=== PATIENT | male | born 1960 | race Caucasian/White ===

== ENCOUNTER 2017-06-21 08:40 | Emergency (ER) | payer BC, OTHER ==
[~2017-06-21] VITALS: Ht 180.3 cm; Wt 106.6 kg
[~2017-06-21 08:40] MED LIST: ASPI-586 PO; MULT-35 PO; OMEP20TA33 PO; PRAV20TA3 PO
[2017-06-21] MEDS ORDERED: MONT10TA24 (10:37)
[2017-06-21] MEDS ORDERED: DICL75TA2 (10:37)
[2017-06-21] MEDS ORDERED: META800T (10:37)
[2017-06-21] MEDS ORDERED: FLUT1AER (10:37)
[2017-06-21] MEDS ORDERED: METH4TAB PO (11:04)
[2017-06-21] MEDS ORDERED: HYDR-757 PO (11:04)
--- NOTE | 2017-06-21 11:04 | ED Upper Extremity ---
General Chief Complaint: Upper Extremity Stated Complaint: R SHOULDER PAIN RADIATING INTO FINGERS Nursing Triage Note: pt c/o right shoulder pain x 3 weeks. pt was seen at hospital in [place], [place] last week et started on diclofenac et metaxalone and given a steroid injection. denies improvement. pain radiating to hand. Nursing Sepsis Screen: No Definite Risk Source: patient Exam Limitations: no limitations History of Present Illness Time seen by provider: 11:01 Initial Comments To ER with right shoulder pain that radiates up into his neck and down into his fingers. This is been present for one week without any known injury. He works as a local delivery truck driver and was seen at a hospital in [place] last week. Given a prescription for metaxalone and diclofenac without improvement. Does not have a local physician. Onset: last week Severity: moderate Pain/Injury Location: right shoulder, right arm, right hand Method of Injury: unknown Modifying Factors: Worse With Movement Allergies and Home Medications Allergies Coded Allergies: No Known Drug Allergies (Unverified , 04/30/16) Home Medications Diclofenac Sodium 75 Mg Tablet., (Reported) Fluticasone/Vilanterol 1 Each Blst.w.dev, (Reported) Metaxalone 800 Mg Tablet, (Reported) Montelukast Sodium 10 Mg Tablet, (Reported) Omeprazole Magnesium 20 Mg Tablet.dr, 20 MG PO DAILY, (Reported) Pravastatin Sodium 20 Mg Tablet, 20 MG PO DAILY, #30 Prescribed by: JEWEL COKER on 05/01/16 1500 Constitutional: see HPI EENTM: see HPI Respiratory: no symptoms reported Cardiovascular: no symptoms reported Genitourinary: no symptoms reported Musculoskeletal: no symptoms reported Skin: no symptoms reported Past Jioukxo-Nbpmex-Fymooe Hx Patient Social History Type Used: Cigarettes Recent Foreign Travel: No Contact w/Someone Who Travel: No Recent Infectious Disease Expo: No Recent Hopitalizations: No Seasonal Allergies Seasonal Allergies: No Surgeries History of Surgeries: No Respiratory History of Respiratory Disorde: No Currently Using CPAP: No Currently Using BIPAP: No Cardiovascular History of Cardiac Disorders: No Neurological History of Neurological Disord: No Reproductive System Hx Reproductive Disorders: No Sexually Transmitted Disease: No HIV/AIDS: No Genitourinary History of Genitourinary Disor: No Gastrointestinal History of Gastrointestinal Di: Yes Gastrointestinal Disorders: Abdominal Hernia, Gastroesophageal Reflux Musculoskeletal History of Musculoskeletal Dis: No Endocrine History of Endocrine Disorders: No HEENT History of HEENT Disorders: No Cancer History of Cancer: No Did You Recieve Any Treatments: No Psychosocial History of Psychiatric Problem: No Integumentary History of Skin or Integumenta: No Blood Transfusions History of Blood Disorders: No Adverse Reaction to a Blood Tr: No Family Medical History Significant Family History: CAD Over 55 Years Old Family Medial History: Arthritis G8 BROTHER Cardiovascular disease 19 FATHER Cataracts 19 FATHER Colon cancer 19 FATHER Deafness or hearing loss 19 FATHER Diabetes mellitus 19 FATHER Hypercholesterolemia 19 FATHER Hypertension 19 FATHER Myocardial infarction 19 FATHER G8 BROTHER Respiratory disorder G8 BROTHER Physical Exam Vital Signs Vital Sign - Last 12Hours 06/21/17 09:22 Temp 98.0 Pulse 66 Resp 20 B/P (MAP) 109/60 Capillary Refill : Less Than 3 Seconds General Appearance: WD/WN, no apparent distress HEENT: PERRL/EOMI, normal ENT inspection Neck: non-tender, full range of motion Cardiovascular: regular rate, rhythm, no murmur Respiratory: normal breath sounds, no respiratory distress, no accessory muscle use Gastrointestinal: normal bowel sounds, non tender Shoulder: normal inspection, non-tender Elbow/Forearm: normal inspection, non-tender, Right Wrist: Yes normal inspection, Yes non-tender Neurologic/Tendon: normal sensation, normal motor functions, normal tendon functions Neurologic/Psychiatric: alert, normal mood/affect, oriented x 3 Skin: normal color, warm/dry Progress/Results/Core Measures Results/Orders Vital Signs/I&O Vital Sign - Last 12Hours 06/21/17 09:22 Temp 98.0 Pulse 66 Resp 20 B/P (MAP) 109/60 Blood Pressure Mean: 76 Departure Impression Impression: Primary Impression: Cervical radiculopathy Disposition: 01 HOME, SELF-CARE Condition: Stable Departure-Patient Inst. Decision time for Depature: 11:03 Referrals: NO,LOCAL PHYSICIAN (PCP/Family) Primary Care Physician Patient Instructions: Radiculopathy Add. Discharge Instructions: 1. Do not drive for 8 hours after taking one of these pain pills 2. Continue taking your other medications 3. Follow-up with a family physician to discuss further evaluation such as an MRI.. Scripts Methylprednisolone (Medrol) 4 Mg Tab.ds.pk 4 MG PO UD, #1 PKG Prov: PERLA LEWIS APRN 06/21/17 Hydrocodone/Acetaminophen ([place] 5-325 Tablet) 1 Each Tablet 1 EACH PO Q4H Y for PAIN-SEVERE, #14 TAB Prov: PERLA LEWIS APRN 06/21/17 PERLA LEWIS APRN Jun 21, 2017 11:04
[2017-06-21 11:27] VITALS: BP 109/60
== END 2017-06-21 11:27 | disposition home or self-care (01) ==
LOC: EDUNIT# 08:40 → ER 08:42
DX: M54.12 Radiculopathy, cervical region (principal); K21.9 Gastro-esophageal reflux disease without esophagitis; Z87.19 Personal history of other diseases of the digestive system; Z82.49 Family history of ischemic heart disease and other diseases of the circulatory system
CPT/HCPCS: 99282

== ENCOUNTER → 2017-07-16 | Outpatient (CLI) | payer BC ==
[~2017-07-16] MED LIST changes: +DICL75TA2; +FLUT1AER; +HYDR-757 PO; +META800T; +METH4TAB PO; +MONT10TA24
--- NOTE | 2017-07-16 15:14 | Diagnostic Imaging Report ---
PROCEDURE: MRI right joint upper extremity without contrast. TECHNIQUE: Multiplanar, multisequence MR imaging of the right shoulder was performed without contrast. COMPARISON: None available. INDICATION: Right shoulder pain with limited range of motion. FINDINGS: Rotator cuff: There is abnormal thickening of the anterior supraspinatus with heterogeneous intrinsic signal indicative of tendinopathy. A superimposed low-grade partial-thickness focal interstitial tear is present in the anterior supraspinatus. The teres minor and infraspinatus are normal. Subscapularis tendinopathy with low-grade partial-thickness tearing of the deep superior insertional fibers. Glenoid labrum: By non-arthrogram imaging, the glenoid labrum appears intact. No para-labral cyst. Long head of biceps: Long head of biceps is partially subluxed medially due to overlying partial-thickness tearing of the subscapularis. The intracapsular segment remains intact. Bones and cartilage: Humeral head is normal in morphology without fracture or focal osseous lesion. No glenohumeral chondromalacia. Mild hypertrophic degenerative changes of the acromioclavicular joint without significant inferior projecting osteophytes. Soft tissues: No glenohumeral joint effusion. No MRI findings to suggest adhesive capsulitis. No fluid or inflammatory like signal within the subacromial/subdeltoid space to indicate bursitis. IMPRESSION: 1. Supraspinatus and infraspinatus tendinopathy with superimposed low-grade partial-thickness tears. No rotator cuff muscle atrophy. 2. Medial subluxation of the long head of biceps secondary to overlying partial-thickness tearing of the deep fibers of the infraspinatus. Long head of biceps remains intact. Dictated by: Dictated on workstation # [id number]
== END ==
LOC: RAD 13:34
PROVIDERS: ATTEND Nurse Practitioner Family
DX: S43.081A Other subluxation of right shoulder joint, initial encounter (principal); M75.111 Incomplete rotator cuff tear or rupture of right shoulder, not specified as traumatic; M65.811 Other synovitis and tenosynovitis, right shoulder
CPT/HCPCS: 73221

== ENCOUNTER → 2018-10-05 | Outpatient (CLI) | payer BC, OTHER ==
[~2018-10-05] MED LIST changes: +CATHETER FLUSH 10 ML SYR IV PRN; +HYDR-4226 PO; -HYDR-757 PO; +IOHEXOL 350 MG/ML 150 ML (OMNIPAQUE 350) VIAL IV ONE; +NS 100 ML (IVPB) BAG IV ONE; +RECEIVED CONTRAST (Hold Metformin) IV SCH
[2018-10-05 15:42] LABS: BUN/CREATININE RATIO 9; CREATININE SERUM 1.17 MG/DL (0.60-1.30); GFR ESTIMATED > 60
[2018-10-05 16:28] LABS: ABG BASE EXCESS -2.5 MMOL/L (-2.5-2.5); ABG OXYGEN SATURATION 96 % (94-100); ABG PCO2 36 MMHG (35-45); ABG PO2 70 MMHG (79-93); ABG TCO2 22.9 MMOL/L (21.0-31.0)
[2018-10-05 16:32] LABS: ALLENS TEST POSITIVE
[2018-10-05 16:33] LABS: PATIENT TEMP 97.3; VENTILATOR NO
--- NOTE | 2018-10-05 16:35 | Diagnostic Imaging Report ---
INDICATION: Bilateral leg pain. Bilateral lower extremity venous Doppler study was performed in the routine fashion with color flow Doppler and waveform analysis. FINDINGS: The common femoral veins, superficial femoral veins, popliteal veins and visualized portion of the tibial veins show normal compressibility and venous flow patterns. There is normal augmentation. IMPRESSION: No evidence of deep vein thrombosis in the major veins of both legs. Dictated by: Dictated on workstation # [id number]
--- NOTE | 2018-10-05 18:24 | Diagnostic Imaging Report ---
PROCEDURE: CT angiography of the chest with contrast. TECHNIQUE: Multiple contiguous axial images were obtained through the chest after uneventful bolus administration of intravenous contrast. 2D reconstructed CTA MIP acquisitions were also performed. INDICATION: Left-sided chest pain. Lightheaded. History of tobacco use. Shortness of air. COMPARISON: None. FINDINGS: There is no pulmonary artery filling defect to reflect pulmonary embolism. Small amount of gas noted in the main pulmonary artery non dependently, likely owing to IV access. Heart size is relatively normal without evidence for disproportionate right heart strain. No pericardial effusion. Thoracic aorta is unremarkable. A few mildly prominent scattered mediastinal lymph nodes. No pathologically enlarged lymphadenopathy. Mildly prominent right hilar lymph node at 16 x 10 mm. Calcification in the right subcarinal region. Small amount of fluid within the esophagus could be reflective of potential reflux. There is mild to moderately advanced emphysematous change about the lung parenchyma. Mild groundglass opacities are suggested, however there is no focal lobar consolidation. A few small bullae formation. No gurmeet honeycombing. There is suggestion of some central peribronchial thickening, right slightly greater than left. Asymmetric pleural-based nodularity in the superior segment of the left lower lobe posteriorly at 10 x 4 mm. Diffuse hepatic steatosis. No definitive focal lesion. A few shotty upper abdominal lymph nodes. There is 24 x 19 mm lower-density left adrenal gland mass while incompletely characterized favors probable adenoma. The visualized osseous structures demonstrate no acute findings. IMPRESSION: 1. No CTA evidence for pulmonary embolism. 2. Emphysematous change about the lung parenchyma. Small pleural-based indeterminate nodule in the superior segment of the left lower lobe. 3. Mildly prominent right hilar lymphadenopathy with bilateral peribronchial thickening, suggesting likely nonspecific bronchitis, could be chronic in nature. No gurmeet lobar consolidation. 4. Given the overall findings and clinical history, particularly of tobacco use, followup imaging is recommended. If patient is clinically able, potential lung cancer screening protocol could be utilized. Dictated by: Dictated on workstation # [id number]
== END ==
LOC: RAD 15:03
PROVIDERS: ATTEND Nurse Practitioner Family
DX: J43.9 Emphysema, unspecified (principal); R91.1 Solitary pulmonary nodule; J98.4 Other disorders of lung; M79.604 Pain in right leg; M79.605 Pain in left leg; G47.33 Obstructive sleep apnea (adult) (pediatric); J30.9 Allergic rhinitis, unspecified; Z72.0 Tobacco use
CPT/HCPCS: 36415; 36600; 71275; 82565; 82805; 84520; 93970

== ENCOUNTER → 2020-02-24 | Outpatient (CLI) | payer BC ==
[~2020-02-24] MED LIST changes: -CATHETER FLUSH 10 ML SYR IV PRN; -IOHEXOL 350 MG/ML 150 ML (OMNIPAQUE 350) VIAL IV ONE; -MONT10TA24; +MONT10TA26; -NS 100 ML (IVPB) BAG IV ONE; -RECEIVED CONTRAST (Hold Metformin) IV SCH
--- NOTE | 2020-02-24 11:36 | Diagnostic Imaging Report ---
PROCEDURE: CT abdomen and pelvis without contrast. TECHNIQUE: Multiple contiguous axial images were obtained through the abdomen and pelvis without the use of intravenous contrast. Auto Exposure Controls were utilized during the CT exam to meet ALARA standards for radiation dose reduction. INDICATION: Newly diagnosed prostate carcinoma. No prior studies are available for comparison. The lung bases are clear. Liver does demonstrate some generalized low density suggestive of hepatic steatosis. No discrete liver mass is detected. The gallbladder is unremarkable. No biliary duct dilatation is identified. The pancreas and spleen are unremarkable. No adrenal mass on the right is seen. There is a low density mass left adrenal gland measuring 18 mm suggestive of an adenoma. No renal calculi or hydronephrosis is identified. Aorta is calcified but non-aneurysmal. No central retroperitoneal or mesenteric lymphadenopathy is detected. Bowel loops are of normal caliber. No obstruction is seen. There is diverticulosis of the descending and sigmoid colon but no evidence of acute diverticulitis. No definite free fluid or fluid collection is identified. Appendix is unremarkable. No definite iliac or inguinal lymphadenopathy is identified. The bladder is unremarkable. Prostate contains central calcifications. There is an area of soft tissue prominence along the posterior lateral aspect of the prostate on the right side. Periprostatic lymph node cannot be excluded. Area of soft tissue prominence measures approximately 2.5 x 1.7 cm, best seen image 86, series 2. Bony structures are without evidence of an osteoblastic lesion. Note is made of a fat-containing umbilical hernia. IMPRESSION: 1. Hepatic steatosis. 2. Uncomplicated diverticulosis. 3. Fat-containing umbilical hernia. 4. Soft tissue prominence adjacent to the right lateral and slightly posterior aspect of the prostate. This could represent periprostatic sarath mass. No other areas of lymphadenopathy are identified. No other suspicious abnormality is seen. Dictated by: Dictated on workstation # [id number]
--- NOTE | 2020-02-24 14:40 | Diagnostic Imaging Report ---
INDICATION: Prostate carcinoma. TECHNIQUE: Patient was administered 25.5 mCi technetium 99m MDP intravenously and whole body imaging was performed after a three-hour delay. COMPARISON: No prior bone scans are available for comparison. FINDINGS: There is normal uptake of activity by the axial and appendicular skeleton. There is uptake by both kidneys with excretion into the urinary bladder. No suspicious uptake is identified to suggest osseous metastatic disease. IMPRESSION: No scintigraphic evidence of osseous metastatic disease. Dictated by: Dictated on workstation # [id number]
== END ==
LOC: CARD 10:23
PROVIDERS: ATTEND Urology
DX: K76.0 Fatty (change of) liver, not elsewhere classified (principal); C61 Malignant neoplasm of prostate; K57.30 Diverticulosis of large intestine without perforation or abscess without bleeding; K42.9 Umbilical hernia without obstruction or gangrene
CPT/HCPCS: 74176; 78306; A9503

== ENCOUNTER → 2020-03-22 | Outpatient (CLI) | payer BC ==
[~2020-03-22] MED LIST changes: +GADOBUTROL 10 MMOL/10 ML (GADAVIST) VIAL IV ONE
[2020-03-22 08:18] LABS: CALCIUM 9.1 MG/DL (8.5-10.1); CREATININE SERUM 1.31 MG/DL (0.60-1.30); POTASSIUM 4.3 MMOL/L (3.6-5.0)
--- NOTE | 2020-03-22 12:16 | Diagnostic Imaging Report ---
PROCEDURE: MRI pelvis with and without contrast. TECHNIQUE: Multiplanar, multisequence MRI of the pelvis was performed with and without contrast. INDICATION: Prostate cancer. COMPARISON: CT abdomen and pelvis from 02/24/2020. FINDINGS: There is abnormal hypointense signal on T2-weighted imaging within the right jennifer-aspect of the transitional zone involving the base and mid gland. This is most focally hypointense in the right posterolateral peripheral zone, and there is extensive extraprostatic extension posterior laterally into the perirectal fat. There is loss of fat plane between the right jennifer-aspect of the puborectalis muscle suspicious for invasion. The inferior margin of the right seminal vesicle has some hypointense signal within it and may be potentially invaded. There is no obliteration of the neurovascular bundle at the level of the apex of the prostate. No lymphadenopathy along the external or internal iliac change. No inguinal lymphadenopathy. Common iliac artery chains have no lymphadenopathy. No regional sclerotic skeletal metastases. IMPRESSION: 1. Tumor within the right jennifer-aspect of the prostate involves the transitional zone in the apex, mid gland and base. At the level of the mid gland, there is extraprostatic extension into the perirectal fat and invasion of the puborectalis muscle on the right. 2. No regional lymphadenopathy. Dictated by: Dictated on workstation # [id number]
== END ==
LOC: RAD 07:50
PROVIDERS: ATTEND Urology
DX: C61 Malignant neoplasm of prostate (principal)
CPT/HCPCS: 36415; 72197; 80048

== ENCOUNTER 2020-04-11 14:26 | Outpatient (RCR) | payer BC ==
[~2020-04-11 14:26] MED LIST changes: -GADOBUTROL 10 MMOL/10 ML (GADAVIST) VIAL IV ONE; -MONT10TA26; +MONT10TA97
== END 2020-07-10 | disposition home or self-care (01) ==
LOC: ONC 14:26
PROVIDERS: ATTEND Radiology Radiation Oncology
DX: C61 Malignant neoplasm of prostate (principal)
CPT/HCPCS: 99204

== ENCOUNTER → 2020-08-13 | Outpatient (CLI) | payer BC ==
[~2020-08-13] MED LIST changes: +GADOBUTROL 10 MMOL/10 ML (GADAVIST) VIAL IV ONE
--- NOTE | 2020-08-13 13:03 | Diagnostic Imaging Report ---
PROCEDURE: MRI pelvis with and without contrast. TECHNIQUE: Multiplanar, multisequence MRI of the pelvis was performed with and without contrast. INDICATION: Prostate cancer undergoing therapy. Compared with study 03/22/2020. FINDINGS: The previously well-visualized large right jennifer-prostatic mass with extraprostatic extension present on the prior can no longer be visualized. A right and left jennifer-prostate appeared symmetric and normal in volume morphology and signal intensity. No extraprostatic abnormality. The seminal vesicles unremarkable. Obturator chains and pelvic sidewalls unremarkable. The inguinal canals unremarkable. No lymphadenopathy. Slight thickening of the driver of the urinary bladder chronic. No demonstrated bladder mass. Bladder volume was not pathologic. No pelvic ascites. The visualized pelvic marrow signal intensity normal. IMPRESSION: Excellent response. No MRI visualization of the previously well seen prostatic/extraprostatic mass. No evidence for metastatic disease. No visualized residual or recurrent neoplasm. Dictated by: Dictated on workstation # [id number]
== END ==
LOC: RAD 10:15
PROVIDERS: ATTEND Radiology Radiation Oncology
DX: C61 Malignant neoplasm of prostate (principal)
CPT/HCPCS: 72197

== ENCOUNTER 2020-09-19 05:30 | Outpatient (RCR) | payer BC ==
[~2020-09-19] VITALS: Ht 180.3 cm; Wt 115.0 kg
[~2020-09-19 05:30] MED LIST changes: +CETI10TA17 PO; +ESCI10TA PO; -GADOBUTROL 10 MMOL/10 ML (GADAVIST) VIAL IV ONE; +LISI1TAB46 PO; +RT-ALBUINH INH
== END 2020-09-19 13:32 | disposition home or self-care (01) ==
LOC: PREOP 05:30
PROVIDERS: ATTEND Urology
DX: Z01.812 Encounter for preprocedural laboratory examination (principal); C61 Malignant neoplasm of prostate; Z20.822 Contact with and (suspected) exposure to COVID-19
CPT/HCPCS: 87635

== ENCOUNTER 2020-09-21 06:01 | Day surgery (SDC) | payer BC, OTHER ==
[~2020-09-21] VITALS: Ht 180.3 cm; Wt 115.0 kg
[2020-09-21] VITALS (11 sets, daily range): BP systolic 90–135; BP diastolic 57–87
[~2020-09-21 06:01] MED LIST changes: +MONT10TA32; -MONT10TA97
[2020-09-21] MEDS: LACTATED RINGERS 1,000 ML IV PRN ×2 (06:50→08:25)
[2020-09-21] MEDS ORDERED: proPOfol 200 MG/20 ML (DIPRIVAN) VIAL IV ONE (07:00)
[2020-09-21] MEDS ORDERED: MIDAZOLAM 2 MG/2 ML (VERSED) VIAL ONE (07:00)
[2020-09-21] MEDS ORDERED: CATHETER FLUSH 10 ML SYR IV PRN (07:00)
[2020-09-21] MEDS ORDERED: LIDOCAINE PF 2% 5 ML (XYLOCAINE) VIAL ONE (07:00)
[2020-09-21] MEDS ORDERED: ONDANSETRON 4 MG/2 ML (SDV) Z0FRAN ONE (07:00)
[2020-09-21] MEDS ORDERED: SEVOFLURANE (ULTANE) 15 ML INHAL SOLN ONE ×2 (07:00→09:00)
[2020-09-21] MEDS ORDERED: fentaNYL INJ 100 MCG/2 ML AMP ONE (07:00)
--- NOTE | 2020-09-21 07:24 | Progress Note-Pre Operative ---
Pre-Operative Progress Note H&P Reviewed The H&P was reviewed, patient examined and no changes noted. Date Seen by Provider: Sep 21, 2020 Time Seen by Provider: 07:24 Date H&P Reviewed: Sep 21, 2020 Time H&P Reviewed: 07:24 Pre-Operative Diagnosis: CA PROSTATE ZACHARIAH WATERMAN MD Sep 21, 2020 07:24
--- NOTE | 2020-09-21 07:27 | Progress Note-Post Operative ---
Post-Operative Progess Note Surgeon (s)/Ornamental Ironworking Supervisor (s) Surgeon ZACHARIAH WATERMAN MD, PATRICK MONSALVE MD Ornamental Ironworking Supervisor: NONE Pre-Operative Diagnosis CA PROSTATE Post-Operative Diagnosis SAME Procedure & Operative Findings Date of Procedure 09/21/20 Procedure Performed/Findings BRACHYTHERAPY, CYSTOGRAM, PLACEMENT OF SPACE OAR Anesthesia Type GENERAL Estimated Blood Loss Estimated blood loss (mL): NEGLIGIBLE Specimens/Packing Specimens Removed NONE Packing: NONE ZACHARIAH WATERMAN MD Sep 21, 2020 07:27
--- NOTE | 2020-09-21 07:29 | Discharge Inst-Urology ---
Discharge Inst-Urology Reconcile Patient Problems Problems Reviewed?: Yes Final Diagnosis CA PROSTATE Patient Instructions/Follow Up Plan/Assessment/Instructions Discharge with kwong and leg bag daytime and large bag night time with instructions patient to come Thursday morning to DC Kwong Rest for 48 hours Please make appointment to been seen in office in 2 weeks. Increase oral fluids for 48 hours and then as needed. Diet as tolerated. If questions or concerns contact your physician Or seek help at emergency department. ZACHARIAH WATERMAN MD Sep 21, 2020 07:29
[2020-09-21] MEDS ORDERED: BACITRACIN OINTMENT 28 GM TUBE ONE (08:14)
[2020-09-21] MEDS ORDERED: RT-ALBUTEROL SULF 2.5 MG/3 ML PRE-MIX VIAL ONE (09:07)
[2020-09-21] MEDS ORDERED: IOPAMIDOL 61% 30 ML (ISOVUE 300) VIAL ONE (09:11)
[2020-09-21] MEDS ORDERED: PHEN-640 PO (09:12)
[2020-09-21] MEDS ORDERED: TRM50T PO (09:12)
[2020-09-21] MEDS ORDERED: CIPR-225 PO (09:12)
[2020-09-21] MEDS ORDERED: RT-ALBUTEROL SULF 2.5 MG/3 ML PRE-MIX VIAL INH ONE (09:15)
[2020-09-21] MEDS ORDERED: morphine INJ 10 MG/ML 1ML (SYR OR VIAL) IVP ONE (09:15)
[2020-09-21] MEDS ORDERED: ONDANSETRON 4 MG/2 ML (SDV) Z0FRAN IVP PRN (09:15)
--- NOTE | 2020-09-21 11:05 | Diagnostic Imaging Report ---
INDICATION: Prostate cancer. Intraoperative fluoroscopy views obtained during placement of radiation seed implants by Dr. Chino. 3 views are obtained. There is contrast in the urinary bladder with Wren catheter in place. The bladder wall had a smooth appearance with no evidence of reflux or diverticular disease. 25 seconds of fluoroscopy time was used. IMPRESSION: Intraoperative fluoroscopy used for cystogram. Radiation seed implants are noted in the prostate gland. Urinary bladder was grossly unremarkable on these views. Dictated by: Dictated on workstation # [id number]
--- NOTE | 2020-09-21 11:06 | Anesthesia-General Post-Op ---
General Patient Condition Mental Status/LOC: Same as Preop Cardiovascular: Satisfactory Nausea/Vomiting: Absent Respiratory: Satisfactory Pain: Controlled Complications: Absent Post Op Complications Complications None Follow Up Care/Instructions Patient Instructions None needed. Anesthesia/Patient Condition Patient Condition Patient is doing well, no complaints, stable vital signs, no apparent adverse anesthesia problems. JESÚS ALBARADO DO Sep 21, 2020 11:06
== END 2020-09-21 11:45 | disposition home or self-care (01) ==
LOC: SDC 06:01
PROVIDERS: ATTEND Urology
DX: C61 Malignant neoplasm of prostate (principal); I10 Essential (primary) hypertension; G47.33 Obstructive sleep apnea (adult) (pediatric); K21.9 Gastro-esophageal reflux disease without esophagitis; F41.9 Anxiety disorder, unspecified; J43.9 Emphysema, unspecified; F32.9 Major depressive disorder, single episode, unspecified; E66.9 Obesity, unspecified; Z68.35 Body mass index [BMI] 35.0-35.9, adult; Z79.51 Long term (current) use of inhaled steroids; Z79.899 Other long term (current) drug therapy; Z80.0 Family history of malignant neoplasm of digestive organs; Z80.42 Family history of malignant neoplasm of prostate
CPT/HCPCS: 55874; 76000; 76965; 77290; 77318; 77332; 77370; 77470; 77778; 87081; C1715; C1889; C2643

== ENCOUNTER 2020-11-08 09:06 | Outpatient (RCR) | payer BC, OTHER ==
[~2020-11-08 09:06] MED LIST changes: +CIPR-225 PO; +PHEN-640 PO; +TRM50T PO
== END 2020-11-12 | disposition home or self-care (01) ==
LOC: ONC 09:06
PROVIDERS: ATTEND Radiology Radiation Oncology
DX: C61 Malignant neoplasm of prostate (principal)
CPT/HCPCS: 76873; 77290; 77334

== ENCOUNTER 2020-11-30 18:06 | Emergency (ER) | payer BC, OTHER ==
[~2020-11-30] VITALS: Ht 180.3 cm; Wt 115.2 kg
[2020-11-30 19:13] LABS: BASOPHILS % (AUTO) 1 % (0-10); EOSINOPHILS # (AUTO) 0.2 10^3/uL (0.0-0.3); EOSINOPHILS % (AUTO) 3 % (0-10); HEMOGLOBIN 13.6 g/dL (13.3-17.7); LYMPHOCYTES # (AUTO) 1.1 10^3/uL (1.0-4.0); MEAN CORPUSCULAR HEMOGLOBIN 31 pg (25-34); MEAN CORPUSCULAR HGB CONC 33 g/dL (32-36); MONOCYTES # (AUTO) 0.6 10^3/uL (0.0-1.0); MONOCYTES % (AUTO) 8 % (0-12); NEUTROPHILS # (AUTO) 5.5 10^3/uL (1.8-7.8); NEUTROPHILS % (AUTO) 74 % (42-75)
[2020-11-30 19:20] LABS: HEMATOCRIT 42 % (40-54); LYMPHOCYTES % (AUTO) 14 % (12-44); MEAN CORPUSCULAR VOLUME 94 fL (80-99); MEAN PLATELET VOLUME 11.1 fL (9.0-12.2); PLATELET COUNT 126 10^3/uL (130-400); WHITE BLOOD COUNT 7.4 10^3/uL (4.3-11.0)
[2020-11-30 19:24] LABS: INR 0.9 (0.8-1.4); PROTHROMBIN TIME PATIENT 12.7 SEC (12.2-14.7)
[2020-11-30 19:33] LABS: ALANINE AMINOTRANSFERASE 30 U/L (0-55); ALBUMIN 4.6 GM/DL (3.2-4.5); ALKALINE PHOSPHATASE 119 U/L (40-136); BILIRUBIN,TOTAL 0.4 MG/DL (0.1-1.0); BUN/CREATININE RATIO 10; CALCIUM 9.6 MG/DL (8.5-10.1); CARBON DIOXIDE 22 MMOL/L (21-32); CHLORIDE 101 MMOL/L (98-107); CREATININE SERUM 1.32 MG/DL (0.60-1.30); GFR ESTIMATED 55; GLUCOSE 98 MG/DL (70-105); POTASSIUM 3.9 MMOL/L (3.6-5.0); SODIUM 136 MMOL/L (135-145); TOTAL PROTEIN 7.6 GM/DL (6.4-8.2)
--- NOTE | 2020-11-30 19:44 | Diagnostic Imaging Report ---
INDICATION: Shortness of breath. FINDINGS: The lungs are clear. The heart and vessels are normal. No failure, effusion or pneumothorax. No change from comparison 02/03/2018. IMPRESSION: Normal frontal chest. Dictated by: Dictated on workstation # [id number]
--- NOTE | 2020-11-30 19:53 | ED General ---
General Chief Complaint: Cough/Cold/Flu Symptoms Stated Complaint: GENERAL BODY PAIN;HEAD ACHE;SOB Nursing Triage Note: PT ARRIVED BY PRIVATE VEHICLE WITH CHIEF COMPLAINT OF COUGH, CHILLS, FEVER AND DIARRHEA. PT WAS ALERT, ORIENTED X 4 AND AMBULATORY ON ARRIVAL. PT STATED HE HAS RECEIVED 13 RADIATION TREATMENTS FOR PROSTATE CANCER AND HAS 13 MORE TREATMENTS LEFT. HE GETS TREATMENT EVERY DAY. PT STATED TODAY AT [id number] HE STARTED TO HAVE CHILLS. PT HAS HAD DIARRHEA, BUT THEY THOUGHT IT MIGHT BE FROM RADIATION. HE DID NOT HAVE A FEVER WHEN HE RECEIVED HIS TREATMENT TODAY. PT DENIES ALLERGIES TO MEDICATIONS. PT SMOKES A PACK AND HALF A DAY OF CIGS. PT HAS GENERALIZED PAIN AT A 8. PT HAD FEVER OF 101.1 DEGREES ON ARRIVAL. IV WAS STARTED (22 GAUGE IN RIGHT HAND) WITH BLOOD DRAW. REPORT WAS GIVEN TO PROVIDER. Nursing Sepsis Screen: No Definite Risk Source of Information: Patient, Old Records Exam Limitations: No Limitations History of Present Illness Date Seen by Provider: Nov 30, 2020 Time Seen by Provider: 18:11 Initial Comments This 60-year-old gentleman presents to the emergency room via private vehicle with concerns about some mild shortness of breath, cough, chills, and diarrhea. Symptoms are fairly mild but he is currently receiving daily radiation treatments for prostate cancer. His last treatment was this morning. He denies any known Covid exposures. He has not been vaccinated for COVID-19 yet but did receive his influenza vaccine. He is febrile at this time with a temperature of 38.4 Celsius (101.1 Fahrenheit). He appears in no distress and vital signs are otherwise normal. He is on an androgen antagonist but no other chemotherapy. Allergies and Home Medications Allergies Coded Allergies: No Known Drug Allergies (Unverified , 09/21/20) Home Medications Albuterol Sulfate 1 Puff Puff, 1 PUFF INH PRN, (Reported) 1 PUFF = 90 MCG Cetirizine HCl 10 Mg Tablet, 10 MG PO DAILY, (Reported) Ciprofloxacin HCl 500 Mg Tablet, 500 MG PO BID Prescribed by: TIMOTHY ROSEN on 09/21/20 0912 Escitalopram Oxalate 10 Mg Tablet, 10 MG PO DAILY, (Reported) Lisinopril/Hydrochlorothiazide 1 Each Tablet, 1 EACH PO DAILY, (Reported) Omeprazole Magnesium 20 Mg Tablet.dr, 20 MG PO DAILY, (Reported) Phenazopyridine HCl 200 Mg Tablet, 1 TAB PO TID PRN for PAIN-MILD (1-4) Prescribed by: TIMOTHY ROSEN on 09/21/20 09 Tramadol HCl 50 Mg Tablet, 1-2 TAB PO Q4H PRN for PAIN-MODERATE (5-7) Prescribed by: TIMOTHY ROSEN on 09/21/20911 Patient Home Medication List Home Medication List Reviewed: Yes Review of Systems Review of Systems Constitutional: see HPI EENTM: no symptoms reported Respiratory: see HPI Cardiovascular: no symptoms reported Gastrointestinal: see HPI Genitourinary: see HPI Musculoskeletal: no symptoms reported Skin: no symptoms reported Psychiatric/Neurological: No Symptoms Reported Hematologic/Lymphatic: See HPI Immunological/Allergic: no symptoms reported Past Hreoacv-Htammc-Otwyxh Hx Past Med/Social Hx: Reviewed and Corrections made Patient Social History Alcohol Use: Denies Use Type Used: Cigarettes Recent Infectious Disease Expo: No Recent Hopitalizations: No Seasonal Allergies Seasonal Allergies: No Past Medical History Surgeries: Yes (Prostate biopsy) Orthopedic (Rotator cuff) Respiratory: No Currently Using CPAP: Yes Currently Using BIPAP: No Cardiac: Yes Hypertension Neurological: No Reproductive Disorders: No Sexually Transmitted Disease: No HIV/AIDS: No Genitourinary: No Gastrointestinal: Yes Abdominal Hernia, Gastroesophageal Reflux Musculoskeletal: Yes (ROTATOR CUFF) Endocrine: No HEENT: No Cancer: No Did You Recieve Any Treatments: No Psychosocial: Yes Anxiety Integumentary: No Blood Disorders: No Adverse Reaction/Blood Tranf: No Family Medical History Reviewed Nursing Family Hx Arthritis G8 BROTHER Cardiovascular disease 19 FATHER Cataracts 19 FATHER Colon cancer 19 FATHER Deafness or hearing loss 19 FATHER Diabetes mellitus 19 FATHER Hypercholesterolemia 19 FATHER Hypertension 19 FATHER Myocardial infarction 19 FATHER G8 BROTHER Respiratory disorder G8 BROTHER CAD Over 55 Years Old Physical Exam Vital Signs Vital Signs - First Documented 11/30/20 18:06 Temp 38.4 Pulse 82 Resp 13 B/P (MAP) 129/71 (90) Pulse Ox 98 O2 Delivery Room Air Capillary Refill : Less Than 3 Seconds Height, Weight, BMI Height: 5'11.00" Weight: 259lbs. 1.0oz. 117.087751ec; 35.00 BMI Method:Stated General Appearance: No Apparent Distress, WD/WN HEENT: PERRL/EOMI, Normal ENT Inspection, Other (Mucous membranes moist) Neck: Normal Inspection Respiratory: Lungs Clear, Normal Breath Sounds, No Accessory Muscle Use; No Crackles, No Wheezing Cardiovascular: Regular Rate, Rhythm, No Edema, No Murmur Gastrointestinal: Normal Bowel Sounds, Non Tender, Soft Extremity: Normal Inspection, No Pedal Edema Neurologic/Psychiatric: Alert, Oriented x3, No Motor/Sensory Deficits, Normal Mood/Affect, technical support representative II-XII Norm as Tested Skin: Normal Color, Warm/Dry Focused Exam Lactate Level 11/30/20 18:58: Lactic Acid Level 1.98 Lactic Acid Level Laboratory Tests Test 11/30/20 18:58 Lactic Acid Level 1.98 MMOL/L (0.50-2.00) Progress/Results/Core Measures Suspected Sepsis Recent Fever Within 48 Hours: Yes Infection Criteria Present: Suspected New Infection New/Unexplained Altered Menta: No Sepsis Screen: No Definite Risk SIRS Temperature: Pulse: 82 Respiratory Rate: 13 Laboratory Tests 11/30/20 18:58: White Blood Count 7.4 Blood Pressure 129 /71 Mean: 90 11/30/20 18:58: Lactic Acid Level 1.98 Laboratory Tests 11/30/20 18:58: Creatinine 1.32H, INR Comment 0.9, Platelet Count 126L, Total Bilirubin 0.4 Results/Orders Lab Results Laboratory Tests Test 11/30/20 18:58 11/30/20 20:49 Range/Units White Blood Count 7.4 4.3-11.0 10^3/uL Red Blood Count 4.43 4.30-5.52 10^6/uL Hemoglobin 13.6 13.3-17.7 g/dL Hematocrit 42 40-54 % Mean Corpuscular Volume 94 80-99 fL Mean Corpuscular Hemoglobin 31 25-34 pg Mean Corpuscular Hemoglobin Concent 33 32-36 g/dL Red Cell Distribution Width 13.4 10.0-14.5 % Platelet Count 126 L 130-400 10^3/uL Mean Platelet Volume 11.1 9.0-12.2 fL Immature Granulocyte % (Auto) 0 % Neutrophils (%) (Auto) 74 42-75 % Lymphocytes (%) (Auto) 14 12-44 % Monocytes (%) (Auto) 8 0-12 % Eosinophils (%) (Auto) 3 0-10 % Basophils (%) (Auto) 1 0-10 % Neutrophils # (Auto) 5.5 1.8-7.8 10^3/uL Lymphocytes # (Auto) 1.1 1.0-4.0 10^3/uL Monocytes # (Auto) 0.6 0.0-1.0 10^3/uL Eosinophils # (Auto) 0.2 0.0-0.3 10^3/uL Basophils # (Auto) 0.0 0.0-0.1 10^3/uL Immature Granulocyte # (Auto) 0.0 0.0-0.1 10^3/uL Prothrombin Time 12.7 12.2-14.7 SEC INR Comment 0.9 0.8-1.4 Sodium Level 136 135-145 MMOL/L Potassium Level 3.9 3.6-5.0 MMOL/L Chloride Level 101 98-107 MMOL/L Carbon Dioxide Level 22 21-32 MMOL/L Anion Gap 13 5-14 MMOL/L Blood Urea Nitrogen 13 7-18 MG/DL Creatinine 1.32 H 0.60-1.30 MG/DL Estimat Glomerular Filtration Rate 55 BUN/Creatinine Ratio 10 Glucose Level 98 70-105 MG/DL Lactic Acid Level 1.98 0.50-2.00 MMOL/L Calcium Level 9.6 8.5-10.1 MG/DL Corrected Calcium 8.5-10.1 MG/DL Total Bilirubin 0.4 0.1-1.0 MG/DL Aspartate Amino Transf (AST/SGOT) 27 5-34 U/L Alanine Aminotransferase (ALT/SGPT) 30 0-55 U/L Alkaline Phosphatase 119 40-136 U/L C-Reactive Protein High Sensitivity 2.16 H 0.00-0.50 MG/DL Total Protein 7.6 6.4-8.2 GM/DL Albumin 4.6 H 3.2-4.5 GM/DL Coronavirus 2019 (DIMITRI) Not Detected Not Detecte Urine Color YELLOW Urine Clarity CLEAR Urine pH 8.0 5-9 Urine Specific [place] 1.020 1.016-1.022 Urine Protein NEGATIVE NEGATIVE Urine Glucose (UA) NEGATIVE NEGATIVE Urine Ketones NEGATIVE NEGATIVE Urine Nitrite NEGATIVE NEGATIVE Urine Bilirubin NEGATIVE NEGATIVE Urine Urobilinogen 1.0 < = 1.0 MG/DL Urine Leukocyte Esterase NEGATIVE NEGATIVE Urine RBC (Auto) NEGATIVE NEGATIVE Urine RBC RARE /HPF Urine WBC NONE /HPF Urine Squamous Epithelial Cells 0-2 /HPF Urine Crystals NONE /LPF Urine Bacteria NEGATIVE /HPF Urine Casts NONE /LPF Urine Mucus NEGATIVE /LPF Urine Culture Indicated NO Micro Results Microbiology 11/30/20 Influenza Types A,B Antigen (SAMANTHA) - Final, Complete My Orders Orders - JUSTYNA LEONARD MD Influenza A And B Antigens (11/30/20 18:11) Covid 19 Inhouse Test (11/30/20 18:11) Cbc With Automated Diff (11/30/20 18:45) Comprehensive Metabolic Panel (11/30/20 18:45) Blood Culture (11/30/20 18:45) Sputum Culture (11/30/20 18:45) Urinalysis (11/30/20 18:45) Urine Culture (11/30/20 18:45) Protime With Inr (11/30/20 18:45) Chest 1 View, Ap/Pa Only (11/30/20 18:45) Ed Iv/Invasive Line Start (11/30/20 18:45) Vital Signs Adult Sepsis Patie Q15M (11/30/20 18:45) Remove Rings In Anticipation O (11/30/20 18:45) Lactic Acid Analyzer (11/30/20 18:45) Hs C Reactive Protein (11/30/20 19:46) Vital Signs/I&O 11/30/20 11/30/20 18:06 18:38 Temp 38.4 Pulse 82 Resp 13 B/P (MAP) 129/71 (90) Pulse Ox 98 O2 Delivery Room Air Room Air Capillary Refill : Less Than 3 Seconds Blood Pressure Mean: 90 Progress Note #1: Time: 19:57 Progress Note Patient was seen and examined. Because of his cancer history and fever a septic work-up was pursued. COVID-19 swab was negative. Chest x-ray was unremarkable. UA, influenza screen, and CRP are pending. Progress Note #2: Time: 21:14 Progress Note Work-up did not reveal any source of infection. Influenza and Covid screens were negative. No source of bacterial infection was identified. WBC was normal and CRP was low. Patient is not truly immunocompromised as he is not receiving any chemotherapies other than androgen blocking medication at this time. He is being discharged home with instructions for careful observation and a low threshold to return to care. Diagnostic Imaging Diagonstic Imaging: Xray Plain Films/CT/US/NM/MRI: chest Comments Chest x-ray viewed by me and report reviewed. See report below: NAME: ERIC SEGURA [facility] REC#: [id number] PT STATUS: REG ER : 1960 PHYSICIAN: JUSTYNA LEONARD MD ADMIT DATE: 11/30/20/ER Draft Date of Exam:11/30/20 CHEST 1 VIEW, AP/PA ONLY INDICATION: Shortness of breath. FINDINGS: The lungs are clear. The heart and vessels are normal. No failure, effusion or pneumothorax. No change from comparison 02/03/2018. IMPRESSION: Normal frontal chest. Dictated on workstation # [id number] Dict: 11/30/201934 Trans: 11/30/201942 PJE [id number] Interpreted by: BILL ALARCON Departure Impression Primary Impression: Flu-like symptoms Disposition: 01 HOME, SELF-CARE Condition: Stable Departure-Patient Inst. Decision time for Depature: 21:16 Referrals: [facility] [place] (PCP) Primary Care Physician DEDE BOYCE (Family) Primary Care Physician Patient Instructions: Fever, Adult (DC) Add. Discharge Instructions: Drink plenty of clear liquids to stay well-hydrated. Stay home and avoid contact with others until you are free of fever (100.3 Fahrenheit) without Tylenol or ibuprofen for at least 24 hours. This will prevent infecting others with a possible viral illness. You may take Tylenol (acetaminophen) up to 1000 mg every 6 hours as needed for pain or fever. You may add ibuprofen sparingly up to 600 mg every 6 hours as needed for pain or fever not controlled by Tylenol. Call with questions or concerns. Work toward quitting smoking as rapidly as possible. Seek assistance from your primary care provider if needed. Return to care if you have new or worsening symptoms. Follow-up with your primary care provider and at the Cancer [facility] as soon as possible. All discharge instructions reviewed with patient and/or family. Voiced understanding. Copy Copies To 1: NATACHA PAGE Copies To 2: ANJU PARRA JOSHUA T MD Nov 30, 2020 19:53
[2020-11-30 20:55] LABS: BILIRUBIN,URINE NEGATIVE (NEGATIVE); CLARITY,URINE CLEAR; COLOR,URINE YELLOW; GLUCOSE, URINE (UA) NEGATIVE (NEGATIVE); KETONES,URINE NEGATIVE (NEGATIVE); LEUKOCYTE ESTERASE ,URINE NEGATIVE (NEGATIVE); NITRITE,URINE NEGATIVE (NEGATIVE); PROTEIN,URINE NEGATIVE (NEGATIVE)
[2020-11-30 21:01] LABS: BACTERIA,URINE NEGATIVE /HPF; RBC,URINE RARE /HPF; SQUAMOUS EPITHELIAL CELL,UR 0-2 /HPF
[2020-11-30 21:28] VITALS: BP 127/70
== END 2020-11-30 21:28 | disposition home or self-care (01) ==
LOC: EDUNIT# 18:06 → ER 18:09
DX: J11.1 Influenza due to unidentified influenza virus with other respiratory manifestations (principal); I10 Essential (primary) hypertension; K21.9 Gastro-esophageal reflux disease without esophagitis; F41.9 Anxiety disorder, unspecified; Z20.822 Contact with and (suspected) exposure to COVID-19
CPT/HCPCS: 71045; 80053; 81000; 83605; 85025; 85610; 86141; 87040; 87088; 87804; 99284; U0002; 36415; 87635

== ENCOUNTER 2021-01-27 13:12 | Emergency (ER) | payer BC, OTHER ==
[~2021-01-27] VITALS: Ht 180 cm; Wt 115.9 kg
[2021-01-27 13:28] LABS: BASOPHILS # (AUTO) 0.1 10^3/uL (0.0-0.1); BASOPHILS % (AUTO) 1 % (0-10); EOSINOPHILS # (AUTO) 0.4 10^3/uL (0.0-0.3)
--- NOTE | 2021-01-27 13:28 | ED Cardiac General ---
History of Present Illness General Chief Complaint: Chest Pain Stated Complaint: CHEST PAIN, L ARM PAIN Nursing Triage Note: PT TO ED 5 PER AMB W/ C/O CHEST PAIN ONSET X1 WEEK, WORSE @0930 TODAY. PT REPORTS COUGH, SOB, DIAPHORESIS, NAUSEA W/ PAIN RADIATING TO LT SHOULDER ET ARM. Source: patient Exam Limitations: no limitations History of Present Illness Date Seen by Provider: Jan 27, 2021 Time Seen by Provider: 13:17 Initial Comments To ER with 1 week history of chest pain described as tightness in his chest and difficulty getting a deep breath. This is been present for 1 week. Has had a cough, nausea, pain that radiates to the left shoulder and left arm. He has had chills and diaphoresis at night. He has had a QuanDx vaccine. He does have COPD. No personal history of heart disease or coronary stenting. Timing/Duration: changing over time Severity: moderate Location: central Prior CP/Workup: no prior chest pain NTG SL CAR SALES ASSOCIATE: No ASA po CAR SALES ASSOCIATE: No Allergies and Home Medications Allergies Coded Allergies: No Known Drug Allergies (Unverified , 09/21/20) Home Medications Albuterol Sulfate 1 Puff Puff, 1 PUFF INH PRN, (Reported) 1 PUFF = 90 MCG Cetirizine HCl 10 Mg Tablet, 10 MG PO DAILY, (Reported) Ciprofloxacin HCl 500 Mg Tablet, 500 MG PO BID Prescribed by: TIMOTHY ROSEN on 09/21/20911 Escitalopram Oxalate 10 Mg Tablet, 10 MG PO DAILY, (Reported) Lisinopril/Hydrochlorothiazide 1 Each Tablet, 1 EACH PO DAILY, (Reported) Omeprazole Magnesium 20 Mg Tablet.dr, 20 MG PO DAILY, (Reported) Phenazopyridine HCl 200 Mg Tablet, 1 TAB PO TID PRN for PAIN-MILD (1-4) Prescribed by: TIMOTHY ROSEN on 09/21/20911 Tramadol HCl 50 Mg Tablet, 1-2 TAB PO Q4H PRN for PAIN-MODERATE (5-7) Prescribed by: TIMOTHY ROSEN on 09/21/20911 Patient Home Medication List Home Medication List Reviewed: Yes Review of Systems Review of Systems Constitutional: see HPI, chills EENTM: No Symptoms Reported Respiratory: See HPI, Cough Cardiovascular: See HPI, Chest Pain Gastrointestinal: No Symptoms Reported Genitourinary: No Symptoms Reported Musculoskeletal: no symptoms reported Skin: no symptoms reported Psychiatric/Neurological: No Symptoms Reported Endocrine: No Symptoms Reported Hematologic/Lymphatic: No Symptoms Reported Past Cvcqbxl-Rxsyeu-Ulhcfq Hx Patient Social History Alcohol Use: Denies Use Smoking Status: Current Everyday Smoker Type Used: Cigarettes Recent Infectious Disease Expo: No Recent Hopitalizations: No Seasonal Allergies Seasonal Allergies: No Past Medical History Surgeries: Yes (Prostate biopsy) Orthopedic Respiratory: No Currently Using CPAP: Yes Currently Using BIPAP: No Cardiac: Yes Hypertension Neurological: No Reproductive Disorders: No Sexually Transmitted Disease: No HIV/AIDS: No Genitourinary: No Gastrointestinal: Yes Abdominal Hernia, Gastroesophageal Reflux Musculoskeletal: Yes (ROTATOR CUFF) Endocrine: No HEENT: No Cancer: Yes Prostate Did You Recieve Any Treatments: No Psychosocial: Yes Anxiety Integumentary: No Blood Disorders: No Adverse Reaction/Blood Tranf: No Family Medical History Arthritis G8 BROTHER Cardiovascular disease 19 FATHER Cataracts 19 FATHER Colon cancer 19 FATHER Deafness or hearing loss 19 FATHER Diabetes mellitus 19 FATHER Hypercholesterolemia 19 FATHER Hypertension 19 FATHER Myocardial infarction 19 FATHER G8 BROTHER Respiratory disorder G8 BROTHER CAD Over 55 Years Old Physical Exam Vital Signs Vital Signs - First Documented Capillary Refill : Less Than 3 Seconds Height, Weight, BMI Height: 5'11.00" Weight: 259lbs. 1.0oz. 117.464048nq; 35.00 BMI Method:Stated General Appearance: No Apparent Distress, WD/WN Neck: Full Range of Motion, Normal Inspection Respiratory: Normal Breath Sounds, No Accessory Muscle Use, No Respiratory Distress Cardiovascular: Regular Rate, Rhythm, Normal Peripheral Pulses Gastrointestinal: Normal Bowel Sounds, Non Tender, Soft Neurologic/Psychiatric: Alert, Oriented x3 Skin: Normal Color, Warm/Dry Progress/Results/Core Measures Results/Orders Lab Results Laboratory Tests Test 01/27/21 13:21 01/27/21 13:36 Range/Units White Blood Count 6.2 4.3-11.0 10^3/uL Red Blood Count 3.86 L 4.30-5.52 10^6/uL Hemoglobin 12.0 L 13.3-17.7 g/dL Hematocrit 36 L 40-54 % Mean Corpuscular Volume 93 80-99 fL Mean Corpuscular Hemoglobin 31 25-34 pg Mean Corpuscular Hemoglobin Concent 34 32-36 g/dL Red Cell Distribution Width 14.1 10.0-14.5 % Platelet Count 155 130-400 10^3/uL Mean Platelet Volume 11.0 9.0-12.2 fL Immature Granulocyte % (Auto) 0 % Neutrophils (%) (Auto) 63 42-75 % Lymphocytes (%) (Auto) 23 12-44 % Monocytes (%) (Auto) 8 0-12 % Eosinophils (%) (Auto) 6 0-10 % Basophils (%) (Auto) 1 0-10 % Neutrophils # (Auto) 3.9 1.8-7.8 10^3/uL Lymphocytes # (Auto) 1.4 1.0-4.0 10^3/uL Monocytes # (Auto) 0.5 0.0-1.0 10^3/uL Eosinophils # (Auto) 0.4 H 0.0-0.3 10^3/uL Basophils # (Auto) 0.1 0.0-0.1 10^3/uL Immature Granulocyte # (Auto) 0.0 0.0-0.1 10^3/uL Percent Immature Platelet Fraction 4.8 0.0-7.6 % Prothrombin Time 12.8 12.2-14.7 SEC INR Comment 0.9 0.8-1.4 Activated Partial Thromboplast Time 25 24-35 SEC Sodium Level 139 135-145 MMOL/L Potassium Level 3.9 3.6-5.0 MMOL/L Chloride Level 105 98-107 MMOL/L Carbon Dioxide Level 23 21-32 MMOL/L Anion Gap 11 5-14 MMOL/L Blood Urea Nitrogen 15 7-18 MG/DL Creatinine 1.37 H 0.60-1.30 MG/DL Estimat Glomerular Filtration Rate 53 BUN/Creatinine Ratio 11 Glucose Level 129 H 70-105 MG/DL Calcium Level 9.3 8.5-10.1 MG/DL Corrected Calcium 9.4 8.5-10.1 MG/DL Magnesium Level 1.7 1.6-2.4 MG/DL Total Bilirubin 0.3 0.1-1.0 MG/DL Aspartate Amino Transf (AST/SGOT) 18 5-34 U/L Alanine Aminotransferase (ALT/SGPT) 21 0-55 U/L Alkaline Phosphatase 99 40-136 U/L Myoglobin 67.8 10.0-92.0 NG/ML Troponin I < 0.028 <0.028 NG/ML B-Type Natriuretic Peptide 43.3 <100.0 PG/ML Total Protein 6.6 6.4-8.2 GM/DL Albumin 3.9 3.2-4.5 GM/DL Influenza Type A (RT-PCR) Not Detected Not Detecte Influenza Type B (RT-PCR) Not Detected Not Detecte SARS-CoV-2 RNA (RT-PCR) Not Detected Not Detecte My Orders Orders - PERLA LEWIS COUNTER MANAGER Cbc With Automated Diff (01/27/21 13:21) Magnesium (01/27/21 13:21) Chest 1 View, Ap/Pa Only (01/27/21 13:21) Ekg Tracing (01/27/21 13:21) Comprehensive Metabolic Panel (01/27/21 13:21) Myoglobin Serum (01/27/21 13:21) Protime With Inr (01/27/21 13:21) Partial Thromboplastin Time (01/27/21 13:21) O2 (01/27/21 13:21) Monitor-Rhythm Ecg Trace Only (01/27/21 13:21) Lipid Panel (01/28/21 06:00) Ed Iv/Invasive Line Start (01/27/21 13:21) BNP (01/27/21 13:21) Troponin I (01/27/21 13:21) Aspirin Chewable Tablet (Baby Aspirin Ch (01/27/21 13:30) Covid 19 Inhouse Test (01/27/21 13:21) Influenza A And B By Pcr (01/27/21 13:21) Albuterol Inhaler (Ventolin Hfa) (01/27/21 14:00) Albuterol/Ipra Inhalation Soln (Duoneb I (01/27/21 14:15) Svn Small Volume Nebulizer (01/27/21 14:05) Ns Iv 1000 Ml (Sodium Chloride 0.9%) (01/27/21 14:15) Ns Iv 1000 Ml (Sodium Chloride 0.9%) (01/27/21 14:10) Albuterol/Ipra Inhalation Soln (Duoneb I (01/27/21 14:20) Medications Given in ED Current Medications Medications Dose Ordered Sig/Sunil Route Start Time Stop Time Status Last Admin Dose Admin Albuterol/ Ipratropium 3 ml ONCE ONCE INH 01/27/21 14:15 01/27/21 14:16 DC 01/27/21 14:23 3 ML Aspirin 324 mg ONCE ONCE PO 01/27/21 13:30 01/27/21 13:31 DC 01/27/21 13:29 324 MG Vital Signs/I&O 01/27/21 01/27/21 01/27/21 13:13 13:13 14:24 Temp 36.0 Pulse 66 Resp 20 B/P (MAP) 109/65 (80) Pulse Ox 95 94 O2 Delivery Room Air Room Air Room Air Blood Pressure Mean: 80 Progress Progress Note : Progress Note NAME: ERIC SEGURA [facility] REC#: [id number] PT STATUS: REG ER : 1960 PHYSICIAN: PERLA LEWIS APRN ADMIT DATE: 01/27/21/ER Draft Date of Exam:01/27/21 CHEST 1 VIEW, AP/PA ONLY Clinical indications: Patient with chest pain. Exam: Portable chest x-ray upright view. Comparisons: Chest x-ray dated 11/30/2020. Findings: Lungs/pleura: Lungs are clear. There is no pneumothorax. There is no pleural effusion. Mediastinum: Unremarkable. Pulmonary vasculature: Unremarkable. Heart: Unremarkable. Bones/extrathoracic soft tissue: Unremarkable. Impression: There is no radiographic evidence of acute cardiopulmonary process. Dictated on workstation # [id number] Dict: 01/27/21 1331 Trans: 01/27/21 1341 CVB [id number] Interpreted by: MESERET PEGUERO MD Electronically signed by: Departure Communication (Admissions) 0546-[id number] shows sinus rhythm, no ST segment changes, no ectopy Impression Primary Impression: COPD exacerbation Disposition: 01 HOME, SELF-CARE Condition: Stable Departure-Patient Inst. Decision time for Depature: 14:51 Referrals: [facility] [place] [place] (PCP) Primary Care Physician DEDE BOYCE (Family) Primary Care Physician Patient Instructions: COPD Exacerbation, Adult ED Add. Discharge Instructions: 1. Return to ER for any concerns 2. Steroids as directed and breathing treatments as directed. Scripts Cefuroxime Axetil (Cefuroxime) 250 Mg Tablet 250 MG PO BID, #10 TAB Prov: PERLA LEWIS APRN 01/27/21 Prednisone (Prednisone) 20 Mg Tab 40 MG PO DAILY, #6 TAB 0 Refills Prov: PERLA LEWIS APRN 01/27/21 PERLA LEWIS APRN Jan 27, 2021 13:28
[2021-01-27 13:30] LABS: EOSINOPHILS % (AUTO) 6 % (0-10); HEMATOCRIT 36 % (40-54); LYMPHOCYTES # (AUTO) 1.4 10^3/uL (1.0-4.0); LYMPHOCYTES % (AUTO) 23 % (12-44); MEAN CORPUSCULAR HEMOGLOBIN 31 pg (25-34); MEAN CORPUSCULAR HGB CONC 34 g/dL (32-36); MEAN CORPUSCULAR VOLUME 93 fL (80-99); MONOCYTES # (AUTO) 0.5 10^3/uL (0.0-1.0); MONOCYTES % (AUTO) 8 % (0-12); NEUTROPHILS # (AUTO) 3.9 10^3/uL (1.8-7.8); NEUTROPHILS % (AUTO) 63 % (42-75); PLATELET COUNT 155 10^3/uL (130-400); WHITE BLOOD COUNT 6.2 10^3/uL (4.3-11.0)
[2021-01-27] MEDS ORDERED: ASPIRIN 81 MG CHEW (CHILDREN'S ASA) PO ONE (13:30)
[2021-01-27 13:41] LABS: ALBUMIN 3.9 GM/DL (3.2-4.5); POTASSIUM 3.9 MMOL/L (3.6-5.0)
--- NOTE | 2021-01-27 13:41 | Diagnostic Imaging Report ---
Clinical indications: Patient with chest pain. Exam: Portable chest x-ray upright view. Comparisons: Chest x-ray dated 11/30/2020. Findings: Lungs/pleura: Lungs are clear. There is no pneumothorax. There is no pleural effusion. Mediastinum: Unremarkable. Pulmonary vasculature: Unremarkable. Heart: Unremarkable. Bones/extrathoracic soft tissue: Unremarkable. Impression: There is no radiographic evidence of acute cardiopulmonary process. Dictated by: Dictated on workstation # [id number]
[2021-01-27 13:42] LABS: CALCIUM 9.3 MG/DL (8.5-10.1); INR 0.9 (0.8-1.4); PROTHROMBIN TIME PATIENT 12.8 SEC (12.2-14.7)
[2021-01-27 13:44] LABS: TOTAL PROTEIN 6.6 GM/DL (6.4-8.2)
[2021-01-27 13:45] LABS: BILIRUBIN,TOTAL 0.3 MG/DL (0.1-1.0)
[2021-01-27 13:47] LABS: CREATININE SERUM 1.37 MG/DL (0.60-1.30)
[2021-01-27 13:50] LABS: MAGNESIUM 1.7 MG/DL (1.6-2.4)
[2021-01-27] MEDS ORDERED: RT-ALBUTEROL INHALER HFA (VENTOLIN HFA) 18 GM IH SCH (14:00)
[2021-01-27] MEDS ORDERED: NS IV 1000 ML 1,000 ML ONE (14:10)
[2021-01-27] MEDS ORDERED: NS IV 1000 ML 1,000 ML IV SCH (14:15)
[2021-01-27] MEDS ORDERED: RT-ALBUTEROL/IPRATROPIUM 3 ML (DUONEB) VIAL INH ONE (14:15)
[2021-01-27] MEDS ORDERED: RT-ALBUTEROL/IPRATROPIUM 3 ML (DUONEB) VIAL ONE (14:20)
[2021-01-27] MEDS ORDERED: CEFU250T80 PO (14:59)
[2021-01-27] MEDS ORDERED: PRD20T PO (14:59)
[2021-01-27 16:05] VITALS: BP 0/0
== END 2021-01-27 16:05 | disposition home or self-care (01) ==
LOC: EDUNIT# 13:12 → ER 13:15
DX: J44.1 Chronic obstructive pulmonary disease with (acute) exacerbation (principal); I10 Essential (primary) hypertension; K21.9 Gastro-esophageal reflux disease without esophagitis; F41.9 Anxiety disorder, unspecified; F17.210 Nicotine dependence, cigarettes, uncomplicated; Z20.822 Contact with and (suspected) exposure to COVID-19; Z79.899 Other long term (current) drug therapy
CPT/HCPCS: 36415; 71045; 80053; 83735; 83874; 83880; 84484; 85025; 85610; 85730; 87636; 93005; 94640

== ENCOUNTER 2021-02-07 08:50 | Outpatient (RCR) | payer BC, OTHER ==
[~2021-02-07 08:50] MED LIST changes: +CEFU250T80 PO; +PRD20T PO
== END 2021-02-11 | disposition home or self-care (01) ==
LOC: ONC 08:50
PROVIDERS: ATTEND Radiology Radiation Oncology
DX: C61 Malignant neoplasm of prostate (principal); J44.9 Chronic obstructive pulmonary disease, unspecified; E78.5 Hyperlipidemia, unspecified; J30.9 Allergic rhinitis, unspecified
CPT/HCPCS: 77295; 77300; 77301; 77336; 77338; 77385; 77386; 99213

== ENCOUNTER 2021-05-11 17:48 | Emergency (ER) | payer BC ==
[~2021-05-11] VITALS: Ht 180.3 cm; Wt 113.4 kg
--- NOTE | 2021-05-11 18:27 | ED Cough/URI ---
General Chief Complaint: COVID19 Suspect/Confirmed Stated Complaint: COUGH/HEADACHE Nursing Triage Note: PT AMBULATE TO ROOM 10 WITHOUT DIFFICULTY WITH COUGH COUGH AND HEADACHE SINCE YESTERDAY. PT DENIES TAKING ANYTHING FOR THE PAIN. Source: patient (PT IS POOR HISTORIAN ABOUT PAST MEDICAL HISTORY AND DOES NOT KNOW ANY OF HIS MEDICATIONS) History of Present Illness Date Seen by Provider: May 11, 2021 Time Seen by Provider: 18:00 Initial Comments PT ARRIVES VIA POV FROM HOME STATES HE STARTED FEELING ILL YESTERDAY C/O NON-PRODUCTIVE COUGH C/O FRONTAL HEADACHE--WORSE WITH COUGHING C/O MUCH FATIGUE C/O BODY ACHES C/O SORE THROAT NO GI SYMPTOMS NO LOSS OF TASTE OR SMELL PT UNAWARE OF FEVER--TEMP IS 99.2 HERE PT HAS COPD, BUT NO SHORTNESS OF BREATH USES BREO EVERY DAY, HAS NOT HAD TO USE RESCUE INHALER FOR A LONG TIME PT CONTINUES TO SMOKE 1 1/2 PPD NO CHEST PAIN NO SWELLING IN LEGS OR PAIN IN CALVES NO PALPITATIONS PT HAS BEEN ON VACATION IN [place] THIS WEEK, THEN WENT TO [facility] YESTERDAY AND THEN WENT TO [place] YESTERDAY AND GOT YESTERDAY IS NOT ILL PT HAD KELLEE AND KELLEE VACCINE 12/12/20 PT WAS ALSO DX WITH PROSTATE CANCER EARLIER THIS YEAR HAS COMPLETED EXTERNAL RADIATION AND HAS RADIATION SEED IMPLANTS/BRACHYTHERAPY PT IS ON AN ORAL ANDROGEN NITA, BUT HAS NOT HAD ANY OTHER CHEMOTHERAPY OR ANY OTHER SURGERY FOR PROSTATE CANCER PCP: LEANDRO BOYCE AT [facility] UROLOGIST: DR. WATERMAN Allergies and Home Medications Allergies Coded Allergies: No Known Drug Allergies (Unverified , 09/21/20) Patient Home Medication List Home Medication List Reviewed: Yes Albuterol Sulfate (Ventolin Hfa) 1 Puff Puff, 1 PUFF INH PRN, (Reported) Entered as Reported by: JOHN HSU on 09/14/20 1335 Cefuroxime Axetil (Cefuroxime) 250 Mg Tablet, 250 MG PO BID Prescribed by: PERLA LEWIS on 01/27/21 1459 Cetirizine HCl (Cetirizine HCl) 10 Mg Tablet, 10 MG PO DAILY, (Reported) Entered as Reported by: JOHN HSU on 09/14/20 1335 Ciprofloxacin HCl (Cipro) 500 Mg Tablet, 500 MG PO BID Prescribed by: TIMOTHY ROSEN on 09/21/20911 Doxycycline Hyclate (Doxycycline Hyclate) 100 Mg Tablet, 100 MG PO BID Prescribed by: MARTHA ROBERTSON on 05/11/21 185 Escitalopram Oxalate (Lexapro) 10 Mg Tablet, 10 MG PO DAILY, (Reported) Entered as Reported by: JOHN HSU on 09/14/20 1335 Lisinopril/Hydrochlorothiazide (Lisinopril-Hctz 20-12.5 mg Tab) 1 Each Tablet, 1 EACH PO DAILY, (Reported) Entered as Reported by: JOHN HSU on 09/14/20 1335 Omeprazole Magnesium (Prilosec Otc) 20 Mg Tablet.dr, 20 MG PO DAILY, (Reported) Entered as Reported by: JOE SAN on 04/30/162206 Phenazopyridine HCl (Pyridium) 200 Mg Tablet, 1 TAB PO TID PRN for PAIN-MILD (1- 4) Prescribed by: TIMOTHY ROSEN on 09/21/20911 Prednisone (Prednisone) 20 Mg Tab, 40 MG PO DAILY Prescribed by: PERLA LEWIS on 01/27/21 1459 Tramadol HCl (Tramadol HCl) 50 Mg Tablet, 1-2 TAB PO Q4H PRN for PAIN-MODERATE (5-7) Prescribed by: TIMOTHY ROSEN on 09/21/20911 Review of Systems Review of Systems Constitutional: no symptoms reported, fever, malaise, weakness, other (MUCH FATIGUE) EENTM: see HPI, throat pain; No nose congestion Respiratory: see HPI, cough; No short of breath, No wheezing Cardiovascular: no symptoms reported; No chest pain, No edema, No palpitations, No syncope Gastrointestinal: no symptoms reported; No abdominal pain, No diarrhea, No loss of appetite, No nausea, No vomiting Genitourinary: no symptoms reported; No dysuria Musculoskeletal: see HPI (BODY ACHES) Skin: no symptoms reported Psychiatric/Neurological: See HPI, Headache; Denies Numbness, Denies Paresthesia, Denies Tingling, Denies Weakness Hematologic/Lymphatic: No Symptoms Reported Immunological/Allergic: no symptoms reported Past Dnfdunz-Vzmpdc-Ymreww Hx Patient Social History Tobacco Use?: Yes (08/11 PPD) Tobacco type used: Cigarettes Smoking Status: Current Everyday Smoker Smokeless Tobacco Frequency: Never a User Use of E-Cig and/or Vaping Ehsan: Never a User Substance use?: No Alcohol Use?: Yes (HISTORY, NONE FOR 20 YEARS) Immunizations Up To Date First/Initial COVID19 Vaccinat: 12/12/2020 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 WATERMAN CYSTOSCOPIES AND PROSTATE BIOPSY TEETH REMOVED ROTATOR CUFF SURGERY Surgeries: Yes (Prostate biopsy) Orthopedic Respiratory: Yes COPD Currently Using CPAP: Yes Currently Using BIPAP: No Cardiac: Yes High Cholesterol, Hypertension Neurological: No Reproductive Disorders: No Sexually Transmitted Disease: No HIV/AIDS: No Genitourinary: Yes (PROSTATE CANCER DX 2020) Gastrointestinal: Yes Abdominal Hernia, Gastroesophageal Reflux Musculoskeletal: Yes (ROTATOR CUFF) Endocrine: No HEENT: Yes (TEETH REMOVED. WEARS GLASSES) Cancer: Yes Prostate Did You Recieve Any Treatments: Yes What Type of Treatment Did You: Radiation PROSTATE CANCER DX EARLY 2020 HAS COMPLETED EXTERNAL BEAM RADIATION AND HAS HAD BRACHYTHERAPY/RADIATION SEED IMPLAINTS PT IS ON ORAL ANDROGEN NITA Psychosocial: Yes Anxiety Integumentary: No Blood Disorders: No Adverse Reaction/Blood Tranf: No Family Medical History Arthritis G8 BROTHER Cardiovascular disease 19 FATHER Cataracts 19 FATHER Colon cancer 19 FATHER Deafness or hearing loss 19 FATHER Diabetes mellitus 19 FATHER Hypercholesterolemia 19 FATHER Hypertension 19 FATHER Myocardial infarction 19 FATHER G8 BROTHER Respiratory disorder G8 BROTHER CAD Over 55 Years Old Physical Exam Vital Signs - First Documented 05/11/21 17:57 Temp 37.3 Pulse 72 Resp 17 B/P (MAP) 128/79 (95) O2 Delivery Room Air Capillary Refill : Less Than 3 Seconds Height: 5'11.00" Weight: 259lbs. 1.0oz. [id number]; 34.00 BMI Method:Stated General Appearance: WD/WN, no apparent distress, other (DOES NOT APPEAR ILL OR TO BE IN ANY DISCOMFORT OR DISTRESS.) HEENT: PERRL/EOMI, normal ENT inspection, TMs normal, pharynx normal, other (EDENTULOUS) Neck: normal inspection Respiratory: normal breath sounds, no respiratory distress, no accessory muscle use Cardiovascular: normal peripheral pulses, regular rate, rhythm, no edema, no JVD, no murmur Gastrointestinal: non tender, soft Extremities: normal inspection, no pedal edema, no calf tenderness, normal capillary refill Neurologic/Psychiatric: microsoft dynamics consultant II-XII nml as tested, no motor/sensory deficits, alert, normal mood/affect, oriented x 3 Skin: normal color, warm/dry Progress/Results/Core Measures Suspected Sepsis SIRS Temperature: Pulse: 72 Respiratory Rate: 17 Blood Pressure 128 /79 Mean: 95 Results/Orders Lab Results Laboratory Tests Test 05/11/21 18:08 Range/Units Influenza Type A (RT-PCR) Not Detected Not Detecte Influenza Type B (RT-PCR) Not Detected Not Detecte SARS-CoV-2 RNA (RT-PCR) Not Detected Not Detecte My Orders Orders - MARTHA ROBERTSON DO Influenza A And B By Pcr (05/11/21 18:00) Covid 19 Inhouse Test (05/11/21 18:00) Rx-Doxycycline Tablet (Rx-Vibramycin Tab (05/11/21 18:57) Vital Signs/I&O 05/11/21 05/11/21 17:57 18:01 Temp 37.3 Pulse 72 Resp 17 B/P (MAP) 128/79 (95) O2 Delivery Room Air Room Air Capillary Refill : Less Than 3 Seconds Blood Pressure Mean: 95 Progress Note : Progress Note PLACED IN ISOLATION ROOM PPE WORN AT ALL TIMES COVID-19 TESTING PERFORMED DISCUSSED NEED FOR QUARANTINE, AND NEED FOR REPEAT TESTING IN 2-3 DAYS IF TEST HERE IN ER TONIGHT IS NEGATIVE ALSO DISCUSSED REGENERON THERAPY IF HE TESTS POSITIVE, AND PT WOULD LIKE TO PROCEED WITH THAT TREATMENT IF TEST IS POSITIVE. NO COUGH NO HYPOXIA NO DYSPNEA TEMP IS 99.2 HERE, NO REPORTED FEVER AT HOME VITALS OTHERWISE NORMAL. Departure Impression Primary Impression: Upper respiratory infection Additional Impressions: COPD Prostate cancer Disposition: HOME, SELF-CARE Condition: Stable Departure-Patient Inst. Decision time for Depature: 18:54 Referrals: [facility] SHIVANI GARCIA (PCP) Primary Care Physician DEDE BOYCE (Family) Primary Care Physician Patient Instructions: COVID-19 Overview, Upper Respiratory Infection ED Add. Discharge Instructions: LOTS OF CLEAR LIQUIDS TYLENOL AND MOTRIN NEEDED FOR PAIN OR FEVER OVER 101 OVER THE COUNTER MUCINEX DM FOR COUGH QUARANTINE YOURSELF AND ALL HOUSEHOLD AND CLOSE CONTACTS AT THIS TIME, UNTIL CLEARED BY DR. FOLLOW UP WITH [facility] IN 2-3 DAYS FOR RECHECK AND POSSIBLE RE-TESTING FOR COVID-19 RETURN TO ER IF SYMPTOMS WORSEN All discharge instructions reviewed with patient and/or family. Voiced understanding. Scripts Doxycycline Hyclate (Doxycycline Hyclate) 100 Mg Tablet 100 MG PO BID, #20 TAB 0 Refills Prov: MARTHA ROBERTSON DO 05/11/21 MARTHA ROBERTSON DO May 11, 2021 18:27
[2021-05-11] MEDS ORDERED: DOXY100T2 PO (18:56)
[2021-05-11] MEDS ORDERED: RX-DOXYCYCLINE 100 MG (VIBRAMYCIN) TAB PPK#2 PO STA (18:57)
[2021-05-11 19:06] VITALS: BP 127/71
== END 2021-05-11 19:06 | disposition home or self-care (01) ==
LOC: EDUNIT# 17:48 → ER 17:50
DX: C61 Malignant neoplasm of prostate (principal); J06.9 Acute upper respiratory infection, unspecified; J44.9 Chronic obstructive pulmonary disease, unspecified; I10 Essential (primary) hypertension; K21.9 Gastro-esophageal reflux disease without esophagitis; F41.9 Anxiety disorder, unspecified; F17.210 Nicotine dependence, cigarettes, uncomplicated; Z20.822 Contact with and (suspected) exposure to COVID-19; Z79.899 Other long term (current) drug therapy
CPT/HCPCS: 87636; 99283

== ENCOUNTER 2021-07-21 10:32 | Emergency (ER) | payer BC ==
[~2021-07-21] VITALS: Ht 180 cm; Wt 113.0 kg
[~2021-07-21 10:32] MED LIST changes: +DOXY100T2 PO; +MONT-40; -MONT10TA32
--- NOTE | 2021-07-21 10:52 | ED General ---
General Chief Complaint: COVID19 Suspect/Confirmed Stated Complaint: COUGH/SOA/SORE THROAT/DIARRHEA/CONGESTION/HEADACHE Source of Information: Patient Exam Limitations: No Limitations History of Present Illness Date Seen by Provider: Jul 21, 2021 Time Seen by Provider: 10:50 Initial Comments ER with a 3-day history of productive cough. Has subsequently developed a headache, body aches, diarrhea. Denies shortness of breath. Had a [employer] Covid vaccine in December. Smokes 1.5 pack of cigarettes per day. He is employed as a trucking manager and states that he will get coughing fits so bad that he nearly passes out. Timing/Duration: 2-3 Days Severity: Moderate Associated Systoms: Cough, Headaches, Malaise; No Nausea/Vomiting Allergies and Home Medications Allergies Coded Allergies: No Known Drug Allergies (Unverified , 09/21/20) Patient Home Medication List Home Medication List Reviewed: Yes Acetaminophen with Codeine (Acetaminophen-Cod #3 Tablet) 1 Each Tablet, 1 EACH PO Q6H PRN for COUGH Prescribed by: PERLA LEWIS on 07/21/21 1131 Albuterol Sulfate (Ventolin Hfa) 1 Puff Puff, 1 PUFF INH PRN, (Reported) Entered as Reported by: JOHN HSU on 09/14/20 1335 Cefuroxime Axetil (Cefuroxime) 250 Mg Tablet, 250 MG PO BID Prescribed by: PERLA LEWIS on 01/27/21 1459 Cefuroxime Axetil (Cefuroxime) 500 Mg Tablet, 500 MG PO BID Prescribed by: PERLA LEWIS on 07/21/21 1130 Cetirizine HCl (Cetirizine HCl) 10 Mg Tablet, 10 MG PO DAILY, (Reported) Entered as Reported by: JOHN HSU on 09/14/20 1335 Ciprofloxacin HCl (Cipro) 500 Mg Tablet, 500 MG PO BID Prescribed by: TIMOTHY ROSEN on 09/21/20 0912 Doxycycline Hyclate (Doxycycline Hyclate) 100 Mg Tablet, 100 MG PO BID Prescribed by: MARTHA ROBERTSON on 05/11/21 1856 Escitalopram Oxalate (Lexapro) 10 Mg Tablet, 10 MG PO DAILY, (Reported) Entered as Reported by: JOHN HSU on 09/14/20 1335 Lisinopril/Hydrochlorothiazide (Lisinopril-Hctz 20-12.5 mg Tab) 1 Each Tablet, 1 EACH PO DAILY, (Reported) Entered as Reported by: JOHN HSU on 09/14/20 1335 Omeprazole Magnesium (Prilosec Otc) 20 Mg Tablet.dr, 20 MG PO DAILY, (Reported) Entered as Reported by: JOE SAN on 04/30/16 2207 Phenazopyridine HCl (Pyridium) 200 Mg Tablet, 1 TAB PO TID PRN for PAIN-MILD (1- 4) Prescribed by: TIMOTHY ROSEN on 09/21/20 0912 Prednisone (Prednisone) 20 Mg Tab, 40 MG PO DAILY Prescribed by: PERLA LEWIS on 01/27/21 1459 Prednisone (Prednisone) 20 Mg Tab, 40 MG PO DAILY Prescribed by: PERLA LEWIS on 07/21/21 1130 Tramadol HCl (Tramadol HCl) 50 Mg Tablet, 1-2 TAB PO Q4H PRN for PAIN-MODERATE (5-7) Prescribed by: TIMOTHY ROSEN on 09/21/20 0912 Review of Systems Review of Systems Constitutional: see HPI, malaise EENTM: see HPI Respiratory: see HPI, cough Cardiovascular: no symptoms reported Gastrointestinal: diarrhea Genitourinary: no symptoms reported Musculoskeletal: no symptoms reported Skin: no symptoms reported Psychiatric/Neurological: No Symptoms Reported Hematologic/Lymphatic: No Symptoms Reported Past Dzjkyvt-Nimmdj-Qqowgj Hx Immunizations Up To Date First/Initial COVID19 Vaccinat: 12/12/2020 Seasonal Allergies Seasonal Allergies: No Past Medical History Surgery/Hospitalization HX: BRACHYTHERAPY/RADIATION SEED IMPLANTS FOR PROSTATE CANCER 09/[address] WATERMAN CYSTOSCOPIES AND PROSTATE BIOPSY TEETH REMOVED ROTATOR CUFF SURGERY Surgeries: Yes (Prostate biopsy) Orthopedic Respiratory: Yes COPD Currently Using CPAP: Yes Currently Using BIPAP: No Cardiac: Yes High Cholesterol, Hypertension Neurological: No Reproductive Disorders: No Sexually Transmitted Disease: No HIV/AIDS: No Genitourinary: Yes (PROSTATE CANCER DX 2020) Gastrointestinal: Yes Abdominal Hernia, Gastroesophageal Reflux Musculoskeletal: Yes (ROTATOR CUFF) Endocrine: No HEENT: Yes (TEETH REMOVED. WEARS GLASSES) Cancer: Yes Prostate Did You Recieve Any Treatments: Yes What Type of Treatment Did You: Radiation Psychosocial: Yes Anxiety Integumentary: No Blood Disorders: No Adverse Reaction/Blood Tranf: No Family Medical History Arthritis G8 BROTHER Cardiovascular disease 19 FATHER Cataracts 19 FATHER Colon cancer 19 FATHER Deafness or hearing loss 19 FATHER Diabetes mellitus 19 FATHER Hypercholesterolemia 19 FATHER Hypertension 19 FATHER Myocardial infarction 19 FATHER G8 BROTHER Respiratory disorder G8 BROTHER CAD Over 55 Years Old Physical Exam Vital Signs Vital Signs - First Documented 07/21/21 10:40 Temp 35.7 Pulse 64 Resp 16 B/P (MAP) 132/75 (94) Pulse Ox 98 O2 Delivery Room Air Capillary Refill : Height, Weight, BMI Height: 5'11.00" Weight: 259lbs. 1.0oz. 117.442742lc; 34.00 BMI Method:Stated General Appearance: No Apparent Distress, WD/WN, Other (Alert and oriented no distress heart rate 64 oxygen 98% room air) Eyes: Bilateral Eye Normal Inspection, Bilateral Eye PERRL, Bilateral Eye EOMI Neck: Full Range of Motion, Normal Inspection Respiratory: No Accessory Muscle Use, No Respiratory Distress Cardiovascular: Regular Rate, Rhythm, Normal Peripheral Pulses Gastrointestinal: Normal Bowel Sounds, Non Tender, Soft Extremity: Normal Capillary Refill, Normal Inspection Neurologic/Psychiatric: Alert, Oriented x3 Skin: Normal Color, Warm/Dry Progress/Results/Core Measures Suspected Sepsis SIRS Temperature: Pulse: Respiratory Rate: Laboratory Tests 07/21/21 10:42: White Blood Count 9.0 Blood Pressure / Mean: Laboratory Tests 07/21/21 10:42: Creatinine 1.29, Platelet Count 133, Total Bilirubin 0.4 Results/Orders Lab Results Laboratory Tests Test 07/21/21 10:42 Range/Units White Blood Count 9.0 4.3-11.0 10^3/uL Red Blood Count 4.00 L 4.30-5.52 10^6/uL Hemoglobin 12.2 L 13.3-17.7 g/dL Hematocrit 37 L 40-54 % Mean Corpuscular Volume 92 80-99 fL Mean Corpuscular Hemoglobin 31 25-34 pg Mean Corpuscular Hemoglobin Concent 33 32-36 g/dL Red Cell Distribution Width 13.7 10.0-14.5 % Platelet Count 133 130-400 10^3/uL Mean Platelet Volume 11.9 9.0-12.2 fL Immature Granulocyte % (Auto) 0 % Neutrophils (%) (Auto) 69 42-75 % Lymphocytes (%) (Auto) 20 12-44 % Monocytes (%) (Auto) 8 0-12 % Eosinophils (%) (Auto) 2 0-10 % Basophils (%) (Auto) 0 0-10 % Neutrophils # (Auto) 6.2 1.8-7.8 10^3/uL Lymphocytes # (Auto) 1.8 1.0-4.0 10^3/uL Monocytes # (Auto) 0.7 0.0-1.0 10^3/uL Eosinophils # (Auto) 0.2 0.0-0.3 10^3/uL Basophils # (Auto) 0.0 0.0-0.1 10^3/uL Immature Granulocyte # (Auto) 0.0 0.0-0.1 10^3/uL Sodium Level 137 135-145 MMOL/L Potassium Level 4.1 3.6-5.0 MMOL/L Chloride Level 105 98-107 MMOL/L Carbon Dioxide Level 21 21-32 MMOL/L Anion Gap 11 5-14 MMOL/L Blood Urea Nitrogen 15 7-18 MG/DL Creatinine 1.29 0.60-1.30 MG/DL Estimat Glomerular Filtration Rate 57 BUN/Creatinine Ratio 12 Glucose Level 126 H 70-105 MG/DL Calcium Level 9.5 8.5-10.1 MG/DL Corrected Calcium 9.6 8.5-10.1 MG/DL Total Bilirubin 0.4 0.1-1.0 MG/DL Aspartate Amino Transf (AST/SGOT) 21 5-34 U/L Alanine Aminotransferase (ALT/SGPT) 18 0-55 U/L Alkaline Phosphatase 100 40-136 U/L Total Protein 6.7 6.4-8.2 GM/DL Albumin 3.9 3.2-4.5 GM/DL Procalcitonin 0.03 <0.10 NG/ML Influenza Type A (RT-PCR) Not Detected Not Detecte Influenza Type B (RT-PCR) Not Detected Not Detecte SARS-CoV-2 RNA (RT-PCR) Not Detected Not Detecte My Orders Orders - PERLA LEWIS APRN Covid 19 Inhouse Test (07/21/21 10:37) Influenza A And B By Pcr (07/21/21 10:37) Lactated Ringers (Lr 1000 Ml Iv Solution (07/21/21 11:00) Ketorolac Injection (Toradol Injection) (07/21/21 11:00) Cbc With Automated Diff (07/21/21 10:49) Comprehensive Metabolic Panel (07/21/21 10:49) Chest 1 View, Ap/Pa Only (07/21/21 10:49) Procalcitonin (Pct) (07/21/21 10:49) Prednisone Tablet (Deltasone Tablet) (07/21/21 11:30) Medications Given in ED Current Medications Medications Dose Ordered Sig/Sunil Route Start Time Stop Time Status Last Admin Dose Admin Ketorolac Tromethamine 15 mg ONCE ONCE IVP 07/21/21 11:00 07/21/21 11:01 DC 07/21/21 11:02 15 MG Vital Signs/I&O 07/21/21 10:40 Temp 35.7 Pulse 64 Resp 16 B/P (MAP) 132/75 (94) Pulse Ox 98 O2 Delivery Room Air Capillary Refill : Departure Impression Primary Impression: COPD exacerbation Disposition: 01 HOME, SELF-CARE Condition: Stable Departure-Patient Inst. Decision time for Depature: 11:28 Referrals: [facility] (PCP) Primary Care Physician DEDE BOYCE (Family) Primary Care Physician Patient Instructions: Chronic Obstructive Pulmonary Disease (COPD), Including Emphysema Add. Discharge Instructions: 1. Steroids and antibiotic as directed. Take the cough medication as needed but be aware it can cause some sleepiness and you should not drive for 4 hours after taking it. Scripts Acetaminophen with Codeine (Acetaminophen-Cod #3 Tablet) 1 Each Tablet 1 EACH PO Q6H PRN for COUGH for 7 Days, #10 TAB Prov: PERLA LEWIS APRN 07/21/21 Prednisone (Prednisone) 20 Mg Tab 40 MG PO DAILY, #6 TAB 0 Refills Prov: PERLA LEWIS APRN 07/21/21 Cefuroxime Axetil (Cefuroxime) 500 Mg Tablet 500 MG PO BID, #10 TAB Prov: PERLA LEWIS APRN 07/21/21 Work/School Note: Work Release Form Date Seen in the Emergency Department: Jul 21, 2021 Return to Work: Jul 24, 2021 PERLA LEWIS APRN Jul 21, 2021 10:52
[2021-07-21 10:55] LABS: BASOPHILS % (AUTO) 0 % (0-10); EOSINOPHILS # (AUTO) 0.2 10^3/uL (0.0-0.3); EOSINOPHILS % (AUTO) 2 % (0-10); HEMATOCRIT 37 % (40-54); HEMOGLOBIN 12.2 g/dL (13.3-17.7); LYMPHOCYTES # (AUTO) 1.8 10^3/uL (1.0-4.0); LYMPHOCYTES % (AUTO) 20 % (12-44); MEAN CORPUSCULAR HEMOGLOBIN 31 pg (25-34); MEAN CORPUSCULAR HGB CONC 33 g/dL (32-36); MEAN CORPUSCULAR VOLUME 92 fL (80-99); MEAN PLATELET VOLUME 11.9 fL (9.0-12.2); MONOCYTES # (AUTO) 0.7 10^3/uL (0.0-1.0); MONOCYTES % (AUTO) 8 % (0-12); NEUTROPHILS # (AUTO) 6.2 10^3/uL (1.8-7.8); NEUTROPHILS % (AUTO) 69 % (42-75); PLATELET COUNT 133 10^3/uL (130-400)
[2021-07-21] MEDS ORDERED: KETOROLAC 30 MG/ML VIAL IVP ONE (11:00)
[2021-07-21] MEDS ORDERED: LACTATED RINGERS 1,000 ML IV SCH (11:00)
[2021-07-21 11:05] LABS: ALBUMIN 3.9 GM/DL (3.2-4.5); POTASSIUM 4.1 MMOL/L (3.6-5.0)
[2021-07-21 11:06] LABS: CALCIUM 9.5 MG/DL (8.5-10.1)
[2021-07-21 11:08] LABS: TOTAL PROTEIN 6.7 GM/DL (6.4-8.2)
[2021-07-21 11:09] LABS: BILIRUBIN,TOTAL 0.4 MG/DL (0.1-1.0)
[2021-07-21 11:11] LABS: CREATININE SERUM 1.29 MG/DL (0.60-1.30)
[2021-07-21] MEDS ORDERED: CEFU500T63 PO (11:30)
[2021-07-21] MEDS ORDERED: PRD20T PO (11:30)
[2021-07-21] MEDS ORDERED: predniSONE 20 MG TAB PO ONE (11:30)
[2021-07-21] MEDS ORDERED: ACET1TAB43 PO (11:31)
--- NOTE | 2021-07-21 11:47 | Diagnostic Imaging Report ---
EXAMINATION: Chest 1 view HISTORY: Cough COMPARISON: 01/27/2021 FINDINGS: The lungs are clear without edema or pneumonia. No pleural effusion or pneumothorax. Heart size is normal. IMPRESSION: 1. Clear lungs. Dictated by: Dictated on workstation # [id number]
[2021-07-21 12:00] VITALS: BP 121/81
== END 2021-07-21 12:00 | disposition home or self-care (01) ==
LOC: EDUNIT# 10:32 → ER 10:34
DX: J44.1 Chronic obstructive pulmonary disease with (acute) exacerbation (principal); I10 Essential (primary) hypertension; K21.9 Gastro-esophageal reflux disease without esophagitis; F41.9 Anxiety disorder, unspecified; F17.210 Nicotine dependence, cigarettes, uncomplicated; Z20.822 Contact with and (suspected) exposure to COVID-19; Z79.899 Other long term (current) drug therapy
CPT/HCPCS: 36415; 71045; 80053; 84145; 85025; 87636; 96361; 96374

== ENCOUNTER → 2022-05-13 | Outpatient (CLI) | payer OTHER ==
[~2022-05-13] MED LIST changes: +ACET-11 PO; +CEFU500T63 PO
== END ==
LOC: WOUNDCARE 12:34
PROVIDERS: ATTEND Family Medicine
DX: S90.821A Blister (nonthermal), right foot, initial encounter (principal); S60.521A Blister (nonthermal) of right hand, initial encounter; S60.522A Blister (nonthermal) of left hand, initial encounter; L13.9 Bullous disorder, unspecified; T65.292A Toxic effect of other tobacco and nicotine, intentional self-harm, initial encounter; E66.01 Morbid (severe) obesity due to excess calories; L97.522 Non-pressure chronic ulcer of other part of left foot with fat layer exposed; Z68.36 Body mass index [BMI] 36.0-36.9, adult
CPT/HCPCS: 11042; 85652; 86038; 86141; 86431; A6212; G0463; 36415

== ENCOUNTER → 2022-05-19 | Outpatient (CLI) | payer OTHER | LOC: WOUNDCARE 14:11 | PROVIDERS: ATTEND Family Medicine | DX: L13.9 Bullous disorder, unspecified (principal); T65.292A Toxic effect of other tobacco and nicotine, intentional self-harm, initial encounter; E66.01 Morbid (severe) obesity due to excess calories; Z68.36 Body mass index [BMI] 36.0-36.9, adult | CPT/HCPCS: A6212; G0463; 99212 ==

== ENCOUNTER 2023-04-04 14:46 | Emergency (ER) | payer BC ==
--- NOTE | 2023-04-04 15:11 | ED Abdominal Pain ---
General Chief Complaint: Abdominal/GI Problems Stated Complaint: AB PAIN Source of Information: Patient Exam Limitations: No Limitations History of Present Illness Date Seen by Provider: Apr 04, 2023 Time Seen by Provider: 14:59 Initial Comments 62-year-old male presents to the emergency department today for epigastric abdominal pain. Symptoms present for about a week and initially were off-and-on, dull cramping without radiation. It does seem to come on after food intake. Last night after he ate chili dogs that became constant and severe which was the reason presentation. He denies any nausea or vomiting. No fevers or chills. No changes in bowel or bladder habits. He is never had any intra- abdominal surgeries. He does not drink alcohol. He does have acid reflux, takes a daily PPI. He also has a history of recent anemia and has an appointment next week for an upper and lower endoscopy to check for source of bleeding. All other systems reviewed and negative except documented per HPI. Voice recognition software was used to help create this chart Allergies and Home Medications Allergies Coded Allergies: No Known Drug Allergies (Unverified , 09/21/20) Patient Home Medication List Home Medication List Reviewed: Yes Acetaminophen with Codeine (Acetaminophen-Cod #3 Tablet) 1 Each Tablet, 1 EACH PO Q6H PRN for COUGH Prescribed by: PERLA LEWIS on 07/21/21 1131 Albuterol Sulfate (Ventolin Hfa) 1 Puff Puff, 1 PUFF INH PRN, (Reported) Entered as Reported by: JOHN HSU on 09/14/20 1335 Cefuroxime Axetil (Cefuroxime) 250 Mg Tablet, 250 MG PO BID Prescribed by: PERLA LEWIS on 01/27/21 1459 Cefuroxime Axetil (Cefuroxime) 500 Mg Tablet, 500 MG PO BID Prescribed by: PERLA LEWIS on 07/21/21 1130 Cetirizine HCl (Cetirizine HCl) 10 Mg Tablet, 10 MG PO DAILY, (Reported) Entered as Reported by: JOHN HSU on 09/14/20 1335 Ciprofloxacin HCl (Cipro) 500 Mg Tablet, 500 MG PO BID Prescribed by: TIMOTHY ROSEN on 09/21/20 0912 Doxycycline Hyclate (Doxycycline Hyclate) 100 Mg Tablet, 100 MG PO BID Prescribed by: MARTHA ROBERTSON on 05/11/21 1856 Escitalopram Oxalate (Lexapro) 10 Mg Tablet, 10 MG PO DAILY, (Reported) Entered as Reported by: JOHN HSU on 09/14/20 1335 Lisinopril/Hydrochlorothiazide (Lisinopril-Hctz 20-12.5 mg Tab) 1 Each Tablet, 1 EACH PO DAILY, (Reported) Entered as Reported by: JOHN HSU on 09/14/20 1335 Omeprazole Magnesium (Prilosec Otc) 20 Mg Tablet.dr, 20 MG PO DAILY, (Reported) Entered as Reported by: JOE SAN on 04/30/16 2207 Phenazopyridine HCl (Pyridium) 200 Mg Tablet, 1 TAB PO TID PRN for PAIN-MILD (1- 4) Prescribed by: TIMOTHY ROSEN on 09/21/20 0912 Prednisone (Prednisone) 20 Mg Tab, 40 MG PO DAILY Prescribed by: PERLA LEWIS on 01/27/21 1459 Prednisone (Prednisone) 20 Mg Tab, 40 MG PO DAILY Prescribed by: PERLA LEWIS on 07/21/21 1130 Tramadol HCl (Tramadol HCl) 50 Mg Tablet, 1-2 TAB PO Q4H PRN for PAIN-MODERATE (5-7) Prescribed by: TIMOTHY ROSEN on 09/21/20 0912 Review of Systems Review of Systems Constitutional: see HPI Past Idzzyxl-Eqiwqn-Hlrhnw Hx Patient Social History Tobacco Use?: No Use of E-Cig and/or Vaping dev: No Substance use?: No Alcohol Use?: No Immunizations Up To Date First/Initial COVID19 Vaccinat: 12/28 Seasonal Allergies Seasonal Allergies: No Past Medical History Surgery/Hospitalization HX: BRACHYTHERAPY/RADIATION SEED IMPLANTS FOR PROSTATE CANCER 09/[address] WATERMAN CYSTOSCOPIES AND PROSTATE BIOPSY TEETH REMOVED ROTATOR CUFF SURGERY Surgeries: Yes (Prostate biopsy) Orthopedic Respiratory: Yes COPD Currently Using CPAP: Yes Currently Using BIPAP: No Cardiac: Yes High Cholesterol, Hypertension Neurological: No Reproductive Disorders: No Sexually Transmitted Disease: No HIV/AIDS: No Genitourinary: Yes (PROSTATE CANCER DX 2020) Gastrointestinal: Yes Abdominal Hernia, Gastroesophageal Reflux Musculoskeletal: Yes (ROTATOR CUFF) Endocrine: No HEENT: Yes (TEETH REMOVED. WEARS GLASSES) Cancer: Yes Prostate Did You Recieve Any Treatments: Yes What Type of Treatment Did You: Radiation Psychosocial: Yes Anxiety Integumentary: No Blood Disorders: No Adverse Reaction/Blood Tranf: No Family Medical History Arthritis G8 BROTHER Cardiovascular disease 19 FATHER Cataracts 19 FATHER Colon cancer 19 FATHER Deafness or hearing loss 19 FATHER Diabetes mellitus 19 FATHER Hypercholesterolemia 19 FATHER Hypertension 19 FATHER Myocardial infarction 19 FATHER G8 BROTHER Respiratory disorder G8 BROTHER CAD Over 55 Years Old Physical Exam Vital Signs Vital Signs - First Documented 04/04/23 15:02 Temp 36.4 Pulse 80 Resp 20 B/P (MAP) 105/67 (80) Pulse Ox 95 O2 Delivery Room Air Capillary Refill : Height/Weight/BMI Height: 5'11.00" Weight: 259lbs. 1.0oz. 117.867055vh; 34.00 BMI Method:Stated General Appearance: WD/WN, no apparent distress HEENT: normal ENT inspection, pharynx normal Neck: non-tender, full range of motion, supple, normal inspection Respiratory: chest non-tender, lungs clear, normal breath sounds, no respiratory distress, no accessory muscle use Cardiovascular: regular rate, rhythm, no murmur Gastrointestinal: normal bowel sounds, soft, no organomegaly, tenderness (Tenderness palpation the epigastric region without rebound or guarding. No mass organomegaly. No skin changes) Extremities: normal range of motion, no calf tenderness, normal capillary refill Neurologic/Psychiatric: alert, normal mood/affect, oriented x 3 Skin: normal color, warm/dry Progress/Results/Core Measures Results/Orders Lab Results Laboratory Tests Test 04/04/23 15:10 Range/Units White Blood Count 9.7 4.3-11.0 10^3/uL Red Blood Count 4.20 L 4.30-5.52 10^6/uL Hemoglobin 12.9 L 13.3-17.7 g/dL Hematocrit 39 L 40-54 % Mean Corpuscular Volume 92 80-99 fL Mean Corpuscular Hemoglobin 31 25-34 pg Mean Corpuscular Hemoglobin Concent 33 32-36 g/dL Red Cell Distribution Width 14.2 10.0-14.5 % Platelet Count 167 130-400 10^3/uL Mean Platelet Volume 10.6 9.0-12.2 fL Immature Granulocyte % (Auto) 0 % Neutrophils (%) (Auto) 80 H 42-75 % Lymphocytes (%) (Auto) 11 L 12-44 % Monocytes (%) (Auto) 8 0-12 % Eosinophils (%) (Auto) 1 0-10 % Basophils (%) (Auto) 0 0-10 % Neutrophils # (Auto) 7.7 1.8-7.8 10^3/uL Lymphocytes # (Auto) 1.1 1.0-4.0 10^3/uL Monocytes # (Auto) 0.8 0.0-1.0 10^3/uL Eosinophils # (Auto) 0.1 0.0-0.3 10^3/uL Basophils # (Auto) 0.0 0.0-0.1 10^3/uL Immature Granulocyte # (Auto) 0.0 0.0-0.1 10^3/uL Sodium Level 134 L 135-145 MMOL/L Potassium Level 3.6 3.6-5.0 MMOL/L Chloride Level 103 98-107 MMOL/L Carbon Dioxide Level 20 L 21-32 MMOL/L Anion Gap 11 5-14 MMOL/L Blood Urea Nitrogen 19 H 7-18 MG/DL Creatinine 1.40 H 0.60-1.30 MG/DL Estimat Glomerular Filtration Rate 56 BUN/Creatinine Ratio 14 Glucose Level 114 H 70-105 MG/DL Calcium Level 9.0 8.5-10.1 MG/DL Corrected Calcium 8.8 8.5-10.1 MG/DL Total Bilirubin 0.8 0.1-1.0 MG/DL Aspartate Amino Transf (AST/SGOT) 20 5-34 U/L Alanine Aminotransferase (ALT/SGPT) 16 0-55 U/L Alkaline Phosphatase 82 40-136 U/L Total Protein 6.8 6.4-8.2 GM/DL Albumin 4.2 3.2-4.5 GM/DL Lipase 29 8-78 U/L My Orders Orders - COURTNEYKANDIS DO Comprehensive Metabolic Panel (04/04/23 15:08) Lipase (04/04/23 15:08) Cbc With Automated Diff (04/04/23 15:08) Sucralfate Tablet (Sucralfate Tablet) (04/04/23 15:15) Antacid Suspension (Antacid Suspension (04/04/23 15:15) Lidocaine 2% Viscous 15 Ml (Xylocaine Vi (04/04/23 15:15) Ketorolac Injection (Ketorolac Injection (04/04/23 15:15) Ed Iv/Invasive Line Start (04/04/23 15:08) Medications Given in ED Current Medications Medications Dose Ordered Sig/Sunil Route Start Time Stop Time Status Last Admin Dose Admin Al Hydrox/Mg Hydrox/Simethicone 30 ml ONCE ONCE PO 04/04/23 15:15 04/04/23 15:16 DC 04/04/23 15:22 30 ML Ketorolac Tromethamine 15 mg ONCE ONCE IVP 04/04/23 15:15 04/04/23 15:16 DC 04/04/23 15:22 15 MG Lidocaine HCl 5 ml ONCE ONCE PO 04/04/23 15:15 04/04/23 15:16 DC 04/04/23 15:22 5 ML Sucralfate 1 gm ONCE ONCE PO 04/04/23 15:15 04/04/23 15:16 DC 04/04/23 15:22 1 GM Vital Signs/I&O 04/04/23 15:02 Temp 36.4 Pulse 80 Resp 20 B/P (MAP) 105/67 (80) Pulse Ox 95 O2 Delivery Room Air Departure Communication (Admissions) Initial differential considerations include gastritis, gastric or duodenal ulcer, pancreatitis, cholecystitis, cholelithiasis, enteritis. Labs are reassuring, no evidence for pancreatitis or acute cholecystitis based on exam findings or lab values. He does feel like he got better relief with the GI cocktail than he did with any IV Toradol. With that I will go ahead and prescribe him Carafate as an outpatient. He does have upper and lower endoscopy scheduled at [place] upcoming. This should help discern ulcers versus gallb ladder pathology. He is not anemic. I did go ahead and recommend a bland diet at this point as well again is the Carafate as needed. He will return to care for any severe pain. He will follow-up with GI for any nonemergent needs. Impression Primary Impression: Epigastric pain Disposition: 01 HOME, SELF-CARE Condition: Stable Departure-Patient Inst. Referrals: CRAIG HARMAN APRN (PCP) Primary Care Physician Patient Instructions: Abdominal Pain, Adult ED Add. Discharge Instructions: As discussed is not clear if your symptoms are coming from inflammation of the lining of her stomach, an ulcer or from your gallbladder. Without I recommend you keep a bland diet avoiding greasy or fatty foods, spicy foods or really acidic foods. Use the Carafate as needed as this seemed to help you here. This will coat the lining of your stomach and help protect her from acid. Continue your acid medicine at home as well. Continue with your upper and lower endoscopy as previously scheduled with a GI specialist. If this is negative I recommend you talk to them about possibly evaluating her gallbladder. Return to the emergency department for any severe pain or if your symptoms change in any way concerning to you. All discharge instructions reviewed with patient and/or family. Voiced understanding. Scripts Sucralfate (Carafate) 1 Gram Tablet 1 GM PO ACHS for 5 Days, #20 TAB Prov: KANDIS VALDEZ DO 04/04/23 KANDIS VALDEZ DO Apr 04, 2023 15:11
[2023-04-04] MEDS ORDERED: ANTACID SUSPENSION 30 ML UDC PO ONE (15:15)
[2023-04-04] MEDS ORDERED: LIDOCAINE 2% VISCOUS 15 ML UDC PO ONE (15:15)
[2023-04-04] MEDS ORDERED: KETOROLAC INJ 15 MG/ML VIAL IVP ONE (15:15)
[2023-04-04] MEDS ORDERED: SUCRALFATE 1 GM TABLET PO ONE (15:15)
[2023-04-04 15:26] LABS: BASOPHILS % (AUTO) 0 % (0-10); EOSINOPHILS # (AUTO) 0.1 10^3/uL (0.0-0.3); EOSINOPHILS % (AUTO) 1 % (0-10); HEMATOCRIT 39 % (40-54); HEMOGLOBIN 12.9 g/dL (13.3-17.7); LYMPHOCYTES # (AUTO) 1.1 10^3/uL (1.0-4.0); LYMPHOCYTES % (AUTO) 11 % (12-44); MEAN CORPUSCULAR HEMOGLOBIN 31 pg (25-34); MEAN CORPUSCULAR HGB CONC 33 g/dL (32-36); MEAN CORPUSCULAR VOLUME 92 fL (80-99); MEAN PLATELET VOLUME 10.6 fL (9.0-12.2); MONOCYTES # (AUTO) 0.8 10^3/uL (0.0-1.0); MONOCYTES % (AUTO) 8 % (0-12); NEUTROPHILS # (AUTO) 7.7 10^3/uL (1.8-7.8); NEUTROPHILS % (AUTO) 80 % (42-75); PLATELET COUNT 167 10^3/uL (130-400); WHITE BLOOD COUNT 9.7 10^3/uL (4.3-11.0)
[2023-04-04 15:27] LABS: ALBUMIN 4.2 GM/DL (3.2-4.5); POTASSIUM 3.6 MMOL/L (3.6-5.0)
[2023-04-04 15:30] LABS: TOTAL PROTEIN 6.8 GM/DL (6.4-8.2)
[2023-04-04 15:33] LABS: CREATININE SERUM 1.4 MG/DL (0.60-1.30)
[2023-04-04 15:54] LABS: BILIRUBIN,TOTAL 0.8 MG/DL (0.1-1.0)
[2023-04-04] MEDS ORDERED: SUCR1TAB36 PO (16:56)
[2023-04-04 17:05] VITALS: BP 103/53
== END 2023-04-04 17:07 | disposition home or self-care (01) ==
LOC: EDUNIT# 14:46 → ER 14:50
DX: R10.13 Epigastric pain (principal); J44.9 Chronic obstructive pulmonary disease, unspecified; Z99.89 Dependence on other enabling machines and devices; Z28.311 Partially vaccinated for COVID-19; Z87.19 Personal history of other diseases of the digestive system
CPT/HCPCS: 36415; 80053; 83690; 85025